=== PATIENT | male | born 1945 | race Caucasian/White ===

== ENCOUNTER 2017-01-02 20:07 | Emergency (ER) | payer MEDICARE, OTHER ==
[2017-01-02 20:13] VITALS: BP 141/69
[2017-01-02 20:45] LABS: CHLORIDE,CL 103 mmol/L (101-111); SODIUM,NA 140 mmol/L (135-145)
--- NOTE | 2017-01-02 20:54 | EDM.PDOC ---
ED HPI GENERAL MEDICAL PROBLEM - General Chief Complaint: Chest Pain Stated Complaint: CHEST PRESSURE, [id number] Time Seen by Provider: 01/02/17 20:51 Source of Information: Reports: Patient History Limitations: Reports: No Limitations - History of Present Illness INITIAL COMMENTS - FREE TEXT/NARRATIVE: c/o chest pressure sensation on off for a while tonight seemed to be little more worse. saw PMD Friday for general check-up. presently seems to light up a bit. denies URI Sx. Mid-Sternal Chest Pain Score (Numeric/FACES): 4 - Related Data Allergies Allergy/AdvReac Type Severity Reaction Status Date / Time ramipril AdvReac Cough Verified 01/02/17 20:13 Home Meds: Home Meds Acetaminophen [Tylenol] 325 mg PO ASDIRECTED PRN 04/13/13 [History] Aspirin [Halfprin] 81 mg PO BEDTIME 04/13/13 [History] Atenolol [Tenormin] 75 mg PO DAILY 04/13/13 [History] Omeprazole 20 mg PO DAILY 04/13/13 [History] amLODIPine Besylate [Amlodipine Besylate] 10 mg PO DAILY 04/13/13 [History] atorvaSTATin Calcium [Atorvastatin Calcium] 20 mg PO BEDTIME 04/13/13 [History] Cholecalciferol (Vitamin D3) [Vitamin D3] 2,000 intnl unit PO DAILY 04/23/15 [ History] Lutein/Minerals/Vit A,C & E [I-[place]] 1 cap PO DAILY 04/23/15 [History] Valsartan 80 mg PO DAILY 04/23/15 [History] Cyanocobalamin (Vitamin B-12) [Cyanocobalamin Injection] 1,000 mcg IM ASDIRECTED 03/06/16 [History] Furosemide [Lasix] 20 mg PO DAILY 03/06/16 [History] Past Medical History HEENT History: Reports: Impaired Vision Other HEENT History: wears glasses Cardiovascular History: Reports: Bypass, CAD, High Cholesterol, Hypertension, Stents Respiratory History: Reports: Bronchitis, Recurrent Gastrointestinal History: Reports: Diverticulosis, GERD Other Gastrointestinal History: possible diverticulitis Genitourinary History: Reports: Prostate Disorder Musculoskeletal History: Reports: Arthritis Neurological History: Reports: None Psychiatric History: Reports: None Endocrine/Metabolic History: Reports: None Hematologic History: Reports: B12 Deficiency Immunologic History: Reports: None Oncologic (Cancer) History: Reports: Prostate, Other (See Below) Other Oncologic History: skin Dermatologic History: Reports: None - Past Surgical History Cardiovascular Surgical History: Reports: Coronary Artery Bypass, Coronary Artery Stent GI Surgical History: Reports: Colonoscopy, EGD Musculoskeletal Surgical History: Reports: None Social & Family History - Family History Cardiac: Reports: Hypertension Oncologic: Reports: Brain - Tobacco Use Smoking Status *Q: Never Smoker Second Hand Smoke Exposure: No - Alcohol Use Days Per Week of Alcohol Use: 1 Number of Drinks Per Day: 1 Total Drinks Per Week: 1 - Recreational Drug Use Recreational Drug Use: No - Living Situation & Occupation Living situation: Reports: , with Spouse Occupation: Retired ED ROS GENERAL - Review of Systems Review Of Systems: ROS reveals no pertinent complaints other than HPI. ED EXAM, GENERAL - Physical Exam Exam: See Below Exam Limited By: No Limitations General Appearance: Alert, WD/WN, No Apparent Distress Ears: Hearing Grossly Normal Nose: Normal Inspection Throat/Mouth: Normal Voice, No Airway Compromise Head: Atraumatic Neck: Non-Tender, Full Range of Motion Respiratory/Chest: No Respiratory Distress, No Accessory Muscle Use, Chest Non- Tender, Rhonchi, Other (basilar) Cardiovascular: Regular Rate, Rhythm GI/Abdominal: Soft, Non-Tender Neurological: Alert, Oriented, Normal Cognition, Normal Gait, No Motor/Sensory Deficits Psychiatric: Normal Affect, Normal Mood Skin Exam: Warm, Dry, Normal Color Lymphatic: No Adenopathy Course - Vital Signs Last Recorded V/S: Last Vital Signs Temp 36.2 C 01/02/17 20:09 Pulse 52 L 01/02/17 20:09 Resp 18 01/02/17 20:09 BP 141/69 H 01/02/17 20:09 Pulse Ox 94 L 01/02/17 20:09 - Orders/Labs/Meds Orders: Active Orders 24 hr Category Date Time Status EKG 12 Lead [EKG Documentation Completion] [RC] STAT Care 01/02/17 20:15 Active Labs: Laboratory Tests 01/02/17 01/02/17 01/02/17 Range/Units 20:20 20:20 20:20 WBC 7.1 (5.0-10.0) 10^3/uL RBC 4.10 L (4.6-6.2) 10^6/uL Hgb 12.5 L (14.0-18.0) g/dL Hct 36.5 L (40.0-54.0) % MCV 89.0 (80-100) fL MCH 30.5 (27.0-34.0) pg MCHC 34.2 (33.0-35.0) g/dL Plt Count 151 (150-450) 10^3/uL Neut % (Auto) 61.6 (42.2-75.2) % Lymph % (Auto) 25.3 (20.5-50.1) % [place] % (Auto) 10.5 H (2-8) % Eos % (Auto) 1.8 (1.0-3.0) % Baso % (Auto) 0.8 (0.0-1.0) % D-Dimer, Quantitative < 100 (0-400) ng/mL Sodium 140 (135-145) mmol/L Potassium 3.6 (3.6-5.0) mmol/L Chloride 103 (101-111) mmol/L Carbon Dioxide 27.0 (21.0-31.0) mmol/L Anion Gap 13.6 BUN 18 (7-18) mg/dL Creatinine 0.9 (0.6-1.3) mg/dL Est Cr Clr Drug Dosing 75.48 mL/min Estimated GFR (MDRD) > 60 BUN/Creatinine Ratio 20.00 Glucose 120 H (74-105) mg/dL Calcium 8.6 (8.4-10.2) mg/dl Total Bilirubin 0.8 (0.2-1.0) mg/dL AST 34 (10-42) IU/L ALT 25 (10-60) IU/L Alkaline Phosphatase 76 (42-121) IU/L Troponin I < 0.02 (0.00-0.02) ng/ml B-Natriuretic Peptide 100 (0-100) pg/ml Total Protein 6.8 (6.7-8.2) g/dl Albumin 4.0 (3.2-5.5) g/dl Globulin 2.8 Albumin/Globulin Ratio 1.43 Meds: Medications Discontinued Medications Generic Name Dose Route Start Last Admin Trade Name Freq PRN Reason Stop Dose Admin Ketorolac Tromethamine 15 mg 01/02/17 21:54 01/02/17 22:00 Toradol IVPUSH 01/02/17 21:55 15 mg ONETIME ONE Administration - Re-Assessments/Exams Free Text/Narrative Re-Assessment/Exam: 01/02/17 21:54 results discussed with pt who is feeling better but not 1005. discomfort still come-goes. Departure - Departure Time of Disposition: 22:10 Disposition: Home, Self-Care 01 Condition: Good Clinical Impression: Atypical chest pain Instructions: Nonspecific Chest Pain, [id number] Referrals: Braulio Arias MD [Primary Care Provider] - Forms: ED Department Discharge Additional Instructions: 1) rest and avoid bending lifting straining 2) see family doctor tomorrow or recheck if there is any change or concern - My Orders Last 24 Hours: My Active Orders 01/02/17 20:15 EKG 12 Lead [EKG Documentation Completion] [RC] STAT - Assessment/Plan Last 24 Hours: My Active Orders 01/02/17 20:15 EKG 12 Lead [EKG Documentation Completion] [RC] STAT
[2017-01-02] MEDS ORDERED: Ketorolac 30 MG/ML SDV IVPUSH ONE (21:54)
--- NOTE | 2017-01-03 15:59 | EKG ---
01/02/2017 - ROSA ISELA VO I reviewed the EKG and agreed with the machine's reading. [facility] /[id number]
== END 2017-01-02 22:15 | disposition home or self-care (01) ==
LOC: DL.ED 20:07
DX: R07.89 Other chest pain (principal); I10 Essential (primary) hypertension; K21.9 Gastro-esophageal reflux disease without esophagitis; I25.10 Atherosclerotic heart disease of native coronary artery without angina pectoris; M19.90 Unspecified osteoarthritis, unspecified site; E78.00 Pure hypercholesterolemia, unspecified; Z79.899 Other long term (current) drug therapy
CPT/HCPCS: 36415; 71010; 80053; 83880; 84484; 85025; 85379; 93005; 96374; 99285; J1885; 93010; 99284

== ENCOUNTER 2017-01-21 20:14 | Emergency (ER) | payer MEDICARE, OTHER ==
[2017-01-21 20:24] VITALS: BP 150/75
--- NOTE | 2017-01-21 21:07 | EDM.PDOC ---
ED HPI GENERAL MEDICAL PROBLEM - General Chief Complaint: Abdominal Pain Stated Complaint: ABD PAIN, NO APPETITE Time Seen by Provider: 01/21/17 20:55 Source of Information: Reports: Patient History Limitations: Reports: No Limitations - History of Present Illness INITIAL COMMENTS - FREE TEXT/NARRATIVE: This 72 yo male patient reports to the ED with increased abdominal pain/ tenderness. The patient reports his symptoms started this morning and have been getting worse throughout the day. The patient reports he ate breakfast this morning and a little lunch at noon, but has not been feeling hungry throughout the afternoon. The patient reports he has a history of a bowel obstruction, cardiac bipass and GERD. The patient reports his current symptoms feel more like a bowel obstruction. The patient describes his pain as diffuse with cramping. Onset: Today Duration: Constant, Getting Worse Location: Reports: Abdomen (diffuse) Quality: Reports: Ache, Dull Severity: Moderate Improves with: Reports: None Worsens with: Reports: None Associated Symptoms: Reports: No Other Symptoms Abdomen Pain Score (Numeric/FACES): 3 - Related Data Allergies Allergy/AdvReac Type Severity Reaction Status Date / Time ramipril AdvReac Cough Verified 01/21/17 20:24 Home Meds: Home Meds Acetaminophen [Tylenol] 325 mg PO ASDIRECTED PRN 04/13/13 [History] Aspirin [Halfprin] 81 mg PO BEDTIME 04/13/13 [History] Atenolol [Tenormin] 75 mg PO DAILY 04/13/13 [History] Omeprazole 20 mg PO DAILY 04/13/13 [History] amLODIPine Besylate [Amlodipine Besylate] 10 mg PO DAILY 04/13/13 [History] atorvaSTATin Calcium [Atorvastatin Calcium] 20 mg PO BEDTIME 04/13/13 [History] Cholecalciferol (Vitamin D3) [Vitamin D3] 2,000 intnl unit PO DAILY 04/23/15 [ History] Lutein/Minerals/Vit A,C & E [I-[place]] 1 cap PO DAILY 04/23/15 [History] Valsartan 80 mg PO DAILY 04/23/15 [History] Cyanocobalamin (Vitamin B-12) [Cyanocobalamin Injection] 1,000 mcg IM ASDIRECTED 03/06/16 [History] Furosemide [Lasix] 20 mg PO DAILY 03/06/16 [History] Past Medical History HEENT History: Reports: Impaired Vision Other HEENT History: wears glasses Cardiovascular History: Reports: Bypass, CAD, High Cholesterol, Hypertension, Stents Respiratory History: Reports: Bronchitis, Recurrent Gastrointestinal History: Reports: Diverticulosis, GERD Other Gastrointestinal History: possible diverticulitis Genitourinary History: Reports: Prostate Disorder Musculoskeletal History: Reports: Arthritis Neurological History: Reports: None Psychiatric History: Reports: None Endocrine/Metabolic History: Reports: None Hematologic History: Reports: B12 Deficiency Immunologic History: Reports: None Oncologic (Cancer) History: Reports: Prostate, Other (See Below) Other Oncologic History: skin Dermatologic History: Reports: None - Past Surgical History Cardiovascular Surgical History: Reports: Coronary Artery Bypass, Coronary Artery Stent GI Surgical History: Reports: Colonoscopy, EGD Social & Family History - Family History Cardiac: Reports: Hypertension Oncologic: Reports: Brain - Tobacco Use Smoking Status *Q: Never Smoker Second Hand Smoke Exposure: No - Alcohol Use Days Per Week of Alcohol Use: 1 Number of Drinks Per Day: 1 Total Drinks Per Week: 1 - Recreational Drug Use Recreational Drug Use: No - Living Situation & Occupation Living situation: Reports: , with Spouse Occupation: Retired ED ROS GENERAL - Review of Systems Review Of Systems: ROS reveals no pertinent complaints other than HPI. ED EXAM, GI/ABD - Physical Exam Exam: See Below Exam Limited By: No Limitations General Appearance: Alert, WD/WN, Moderate Distress Eyes: Bilateral: Normal Appearance, EOMI Ears: Normal External Exam, Normal Canal, Hearing Grossly Normal, Normal TMs Nose: Normal Inspection, Normal Mucosa, No Blood Throat/Mouth: Normal Inspection, Normal Lips, Normal Teeth, Normal Gums, Normal Oropharynx, Normal Voice, No Airway Compromise Head: Atraumatic, Normocephalic Neck: Normal Inspection, Supple, Non-Tender, Full Range of Motion Respiratory/Chest: No Respiratory Distress, Lungs Clear, Normal Breath Sounds, No Accessory Muscle Use, Chest Non-Tender Cardiovascular: Normal Peripheral Pulses, Regular Rate, Rhythm, No Edema, No Gallop, No JVD, No Murmur, No Rub GI/Abdominal Exam: Normal Bowel Sounds, Distended, Tender (Male) Exam: Deferred Rectal (Males) Exam: Deferred Back Exam: Normal Inspection, Full Range of Motion, NT Extremities: Normal Inspection Neurological: Alert, Oriented, CN II-XII Intact, Normal Cognition, Normal Gait, Normal Reflexes, No Motor/Sensory Deficits Psychiatric: Normal Affect, Normal Mood Skin Exam: Warm, Dry, Intact, Normal Color, No Rash Lymphatic: No Adenopathy Course - Vital Signs Last Recorded V/S: Last Vital Signs Temp 36.1 C 01/21/17 20:20 Pulse 53 L 01/21/17 20:20 Resp 18 01/21/17 20:20 BP 150/75 H 01/21/17 20:20 Pulse Ox 95 01/21/17 20:20 - Orders/Labs/Meds Labs: Laboratory Tests 01/21/17 01/21/17 Range/Units 21:07 21:07 WBC 10.3 H (5.0-10.0) 10^3/uL RBC 4.69 (4.6-6.2) 10^6/uL Hgb 14.0 D (14.0-18.0) g/dL Hct 41.2 (40.0-54.0) % MCV 87.8 (80-100) fL MCH 29.9 (27.0-34.0) pg MCHC 34.0 (33.0-35.0) g/dL Plt Count 170 (150-450) 10^3/uL Neut % (Auto) 76.1 H (42.2-75.2) % Lymph % (Auto) 13.0 L (20.5-50.1) % [place] % (Auto) 9.4 H (2-8) % Eos % (Auto) 1.0 (1.0-3.0) % Baso % (Auto) 0.5 (0.0-1.0) % Sodium 137 (135-145) mmol/L Potassium 4.2 (3.6-5.0) mmol/L Chloride 101 (101-111) mmol/L Carbon Dioxide 26.0 (21.0-31.0) mmol/L Anion Gap 14.2 BUN 15 (7-18) mg/dL Creatinine 0.7 (0.6-1.3) mg/dL Est Cr Clr Drug Dosing 95.60 mL/min Estimated GFR (MDRD) > 60 BUN/Creatinine Ratio 21.42 Glucose 104 (74-105) mg/dL Calcium 9.3 (8.4-10.2) mg/dl Total Bilirubin 1.3 H (0.2-1.0) mg/dL AST 42 (10-42) IU/L ALT 30 (10-60) IU/L Alkaline Phosphatase 78 (42-121) IU/L Total Protein 7.3 (6.7-8.2) g/dl Albumin 4.4 (3.2-5.5) g/dl Globulin 2.9 Albumin/Globulin Ratio 1.52 Meds: Medications Discontinued Medications Generic Name Dose Route Start Last Admin Trade Name Ronalq PRN Reason Stop Dose Admin Iopamidol 100 ml 01/21/17 21:43 01/21/17 22:20 Isovue-300 (61%) IVPUSH 01/21/17 21:44 100 ml ONETIME ONE Administration Departure - Departure Time of Disposition: 23:34 Disposition: Home, Self-Care 01 Condition: Fair Clinical Impression: Constipation Qualifiers: Constipation type: unspecified constipation type Qualified Code(s): K59.00 - Constipation, unspecified - Discharge Information Instructions: Constipation, Adult, [id number] Forms: ED Department Discharge Care Plan Goals: The patient and his were advised of the examination, lab and CT results during the visit. The patient was encouraged to take MiraLax daily for the next 2-3 days to keep his bowels moving normally. If the patient has any additional symptoms or concerns, the patient should follow-up with his primary care facility or return to the emergency department.
[2017-01-21 21:32] LABS: CHLORIDE,CL 101 mmol/L (101-111); SODIUM,NA 137 mmol/L (135-145)
[2017-01-21] MEDS ORDERED: Iopamidol 612 MG/ML 100 ML Bottle IVPUSH ONE (21:43)
== END 2017-01-21 23:45 | disposition home or self-care (01) ==
LOC: DL.ED 20:14
DX: K59.00 Constipation, unspecified (principal); I25.10 Atherosclerotic heart disease of native coronary artery without angina pectoris; E78.00 Pure hypercholesterolemia, unspecified; I10 Essential (primary) hypertension; K21.9 Gastro-esophageal reflux disease without esophagitis; Z88.8 Allergy status to other drugs, medicaments and biological substances; Z79.899 Other long term (current) drug therapy; Z95.1 Presence of aortocoronary bypass graft; Z95.5 Presence of coronary angioplasty implant and graft; Z79.82 Long term (current) use of aspirin
CPT/HCPCS: 36415; 74177; 80053; 85025; 99284; Q9967

== ENCOUNTER → 2017-07-08 | Emergency (ER) | payer MEDICARE, OTHER ==
[~2017-07-08] MED LIST: Meclizine 12.5 MG Tab ONE; Meclizine 12.5 MG Tab PO ONE
[2017-07-08 11:38] LABS: CHLORIDE,CL 105 mmol/L (101-111); SODIUM,NA 137 mmol/L (135-145)
--- NOTE | 2017-07-08 19:53 | EKG ---
07/08/2017 - ROSA ISELA VO - TIME: 4:28 a.m. EKG shows sinus bradycardia rate of 59 per minute. There are EKG changes consistent with left ventricular hypertrophy. [facility] /[id number]
== END ==
LOC: DL.ED 04:16
DX: H83.09 Labyrinthitis, unspecified ear (principal)
CPT/HCPCS: 36415; 80053; 84484; 85025; 99283; 99284; A9270-GY

== ENCOUNTER 2017-10-19 21:07 | Emergency (ER) | payer MEDICARE, OTHER ==
[2017-10-19 21:18] VITALS: BP 168/72
--- NOTE | 2017-10-19 22:17 | EDM.PDOC ---
ED HPI GENERAL MEDICAL PROBLEM - General Chief Complaint: Upper Extremity Injury/Pain Stated Complaint: SHOULDER OUT OF PLACE [id number] Time Seen by Provider: 10/19/17 22:26 Source of Information: Reports: Patient, RN, RN Notes Reviewed History Limitations: Reports: No Limitations - History of Present Illness INITIAL COMMENTS - FREE TEXT/NARRATIVE: Pt to Er with c/o stiff right shoulder. States he was watching tv and suddenly had decreased range of motion of the shoulder. Pt denies pain at this time. He states he has a colonoscopy in the morning and wants to make sure he is ok to still have that done. Patient denies new trauma or injury to the area. Onset: Today, Sudden Right Shoulder Pain Score (Numeric/FACES): 5 - Related Data Allergies Allergy/AdvReac Type Severity Reaction Status Date / Time ramipril AdvReac Cough Verified 10/19/17 21:19 Home Meds: Home Meds Acetaminophen [Tylenol] 325 mg PO ASDIRECTED PRN 04/13/13 [History] Aspirin [Halfprin] 81 mg PO BEDTIME 04/13/13 [History] Atenolol [Tenormin] 75 mg PO DAILY 04/13/13 [History] Omeprazole 20 mg PO DAILY 04/13/13 [History] amLODIPine Besylate [Amlodipine Besylate] 10 mg PO DAILY 04/13/13 [History] atorvaSTATin Calcium [Atorvastatin Calcium] 20 mg PO BEDTIME 04/13/13 [History] Cholecalciferol (Vitamin D3) [Vitamin D3] 2,000 intnl unit PO DAILY 04/23/15 [ History] Lutein/Minerals/Vit A,C & E [I-[place]rence] 1 cap PO DAILY 04/23/15 [History] Valsartan 80 mg PO DAILY 04/23/15 [History] Cyanocobalamin (Vitamin B-12) [Cyanocobalamin Injection] 1,000 mcg IM ASDIRECTED 03/06/16 [History] Past Medical History HEENT History: Reports: Impaired Vision Other HEENT History: wears glasses Cardiovascular History: Reports: Bypass, CAD, High Cholesterol, Hypertension, Stents Respiratory History: Reports: Bronchitis, Recurrent Gastrointestinal History: Reports: Diverticulosis, GERD, Other (See Below) Other Gastrointestinal History: possible diverticulitis. bowel obstruction Genitourinary History: Reports: Prostate Disorder Musculoskeletal History: Reports: Arthritis Neurological History: Reports: None Psychiatric History: Reports: None Endocrine/Metabolic History: Reports: None Hematologic History: Reports: B12 Deficiency Immunologic History: Reports: None Oncologic (Cancer) History: Reports: Prostate, Other (See Below) Other Oncologic History: skin Dermatologic History: Reports: None - Infectious Disease History Infectious Disease History: Reports: Measles - Past Surgical History HEENT Surgical History: Reports: Tonsillectomy Other HEENT Surgeries/Procedures: rhinoplasty Cardiovascular Surgical History: Reports: Coronary Artery Bypass, Coronary Artery Stent Other Cardiovascular Surgeries/Procedures: triple bypass Respiratory Surgical History: Reports: None GI Surgical History: Reports: Colonoscopy, EGD Male Surgical History: Reports: Circumcision, Prostatectomy Endocrine Surgical History: Reports: None Musculoskeletal Surgical History: Reports: None Social & Family History - Family History Cardiac: Reports: Hypertension Oncologic: Reports: Brain - Tobacco Use Smoking Status *Q: Never Smoker Second Hand Smoke Exposure: No - Caffeine Use Caffeine Use: Reports: Coffee Other Caffeine Use: 2 cups daily - Recreational Drug Use Recreational Drug Use: No - Living Situation & Occupation Living situation: Reports: , with Spouse Occupation: Retired Review of Systems - Review of Systems Review Of Systems: ROS reveals no pertinent complaints other than HPI. ED EXAM, GENERAL - Physical Exam Exam: See Below Exam Limited By: No Limitations General Appearance: Alert, WD/WN, No Apparent Distress Eye Exam: Bilateral Eye: EOMI, Normal Inspection Ears: Normal External Exam, Hearing Grossly Normal Nose: Normal Inspection Throat/Mouth: Normal Inspection, Normal Voice, No Airway Compromise Head: Atraumatic, Normocephalic Neck: Normal Inspection, Supple, Non-Tender, Full Range of Motion Respiratory/Chest: No Respiratory Distress, Lungs Clear, Normal Breath Sounds, No Accessory Muscle Use, Chest Non-Tender Cardiovascular: Normal Peripheral Pulses, Regular Rate, Rhythm, No Edema, No Gallop, No JVD, No Murmur, No Rub Peripheral Pulses: 2+: Radial (L), Radial (R) GI/Abdominal: Normal Bowel Sounds, Soft, Non-Tender (Male) Exam: Deferred Rectal (Males) Exam: Deferred Back Exam: Normal Inspection, Full Range of Motion Extremities: Normal Inspection, Joint Swelling (patient feels the right shoulder is swollen, or larger than the other. It does not appear to be swollen or larger than the left shoulder on exam.), Limited Range of Motion (right arm) Neurological: Alert, Oriented, CN II-XII Intact, Normal Cognition, Normal Gait, Normal Reflexes, No Motor/Sensory Deficits Psychiatric: Normal Affect, Normal Mood Skin Exam: Warm, Dry, Intact, Normal Color, No Rash Lymphatic: No Adenopathy ED TRAUMA EXTREMITY PROCEDURES - Splinting Right Upper Extremity Splint Site: immobilization of right shoulder Pre-Procedure NV Status: Normal Post-Procedure NV Status: Normal Splint Material: Sling Splint Design: Sling Applied & Form Fitted By: Nurse Provider Post-Splint Application NV Check: NV Status Normal, Good Position Complications: No Course - Vital Signs Last Recorded V/S: Last Vital Signs Temp 97.2 F 10/19/17 21:15 Pulse 59 L 10/19/17 21:15 Resp 18 10/19/17 21:15 BP 168/72 H 10/19/17 21:15 Pulse Ox 95 10/19/17 21:15 - Radiology Interpretation Free Text/Narrative:: Right shoulder xray: IMPRESSION: Normal right shoulder x-rays. Thank you for allowing us to participate in the care of your patient. Dictated and Authenticated by: Edgar Mosqueda MD 10/19/2017 10:11 PM Central Time ([place] & [place]) See rad report Departure - Departure Time of Disposition: 22:35 Disposition: Home, Self-Care 01 Condition: Fair Clinical Impression: Decreased ROM of right shoulder - Discharge Information Referrals: Braulio Arias MD [Primary Care Provider] - Forms: ED Department Discharge Additional Instructions: May ice or heat the area as tolerated Use immobilizer until seen by Physical therapy Make an appointment with Physical therapy tomorrow for evaluation Follow up with your primary care facility
== END 2017-10-19 22:42 | disposition home or self-care (01) ==
LOC: DL.ED 21:07
DX: M25.611 Stiffness of right shoulder, not elsewhere classified (principal); I10 Essential (primary) hypertension; Z88.8 Allergy status to other drugs, medicaments and biological substances; Z79.899 Other long term (current) drug therapy
CPT/HCPCS: 73030-RT; 99283

== ENCOUNTER 2017-10-20 06:54 | Day surgery (SDC) | payer MEDICARE, OTHER ==
[~2017-10-20 06:54] MED LIST changes: +Dextrose 5%-0.45% NaCl 1,000 ML IV SCH; -Meclizine 12.5 MG Tab ONE; -Meclizine 12.5 MG Tab PO ONE; +Midazolam 1 MG/ML 2 ML SDV ONE; +Sodium Chloride 0.9% 10 ML Syringe FLUSH PRN; +fentaNYL 100 MCG/2 ML SDV ONE
[2017-10-20] MEDS ORDERED: fentaNYL 100 MCG/2 ML SDV IV ONE ×2 (08:18→08:19)
[2017-10-20] MEDS ORDERED: Midazolam 1 MG/ML 2 ML SDV IV ONE ×2 (08:19→08:20)
--- NOTE | 2017-10-20 08:59 | OR ---
DATE: 10/20/2017 PROCEDURE PERFORMED: Total colonoscopy, NBI with magnification views. PREMEDICATIONS: Fentanyl 100 mcg intravenous, Versed 3 mg intravenous. The procedure was done under pulse oximetry, BP recording, and insulation packer. INDICATION: The patient with rectal bleeding. Colonoscopic examination is done for detection of any polypoid lesions and removal, endoscopic hemostasis therapy if needed. DESCRIPTION OF PROCEDURE: Initial rectal exam was unremarkable. Rigid anoscopy showed some patchy erythema involving the distal rectum. The colonoscope was passed with ease. Photographs were taken, including NBI and magnification views of the rectum showing features consistent with radiation proctopathy, scattered diverticula were noted in the distal left colon along with deformity. The scope was passed with ease up to the ileocecal area, photographs were taken of the normal-appearing cecum identified by landmarks of appendiceal orifice and double- bulged ileocecal folds. There was quite a bit of fecal material, mostly liquid in nature that had to be aspirated. The bowel preparation was found to be adequate. No bleeding was noted from any of the visualized areas at the commencement of the examination. No stricture. No vascular ectasia. No large isolated ulcerations seen. No polyp or tumor mass identified. Probing the proximal sides of folds and flexures, using adequate distention and clearing up the stool material, withdrawal of the scope was made, cecum to rectum time over 6 minutes. No bleeding was noted from any of the visualized areas at the completion of examination. IMPRESSION: 1. Radiation proctopathy. 2. Diverticulosis. The patient tolerated the procedure well. [facility] /[id number]
[2017-10-20 10:36] VITALS: BP 138/68
--- NOTE | 2017-10-20 12:38 | LETTER ---
10/20/[address] [facility] [address] [place] [address] RE: ROSA ISELA VO : [address] Pope: Mr. Rosa Isela Vo had colonoscopic examination done this morning and he tolerated the procedure well. I herewith send a copy of the endoscopy note and photographs for your review. Thank you. Sincerely, [facility] /[id number]
== END 2017-10-20 10:00 | disposition home or self-care (01) ==
LOC: DL.ENDO 06:54
PROVIDERS: ATTEND Internal Medicine Gastroenterology
DX: K62.5 Hemorrhage of anus and rectum (principal); K62.7 Radiation proctitis; K57.30 Diverticulosis of large intestine without perforation or abscess without bleeding; K21.9 Gastro-esophageal reflux disease without esophagitis; K58.2 Mixed irritable bowel syndrome; I25.10 Atherosclerotic heart disease of native coronary artery without angina pectoris; E11.9 Type 2 diabetes mellitus without complications; E66.09 Other obesity due to excess calories; E78.5 Hyperlipidemia, unspecified; F41.1 Generalized anxiety disorder; Z88.8 Allergy status to other drugs, medicaments and biological substances
CPT/HCPCS: G0121; J7042; J2250; J3010

== ENCOUNTER 2017-12-23 07:16 | Emergency (ER) | payer MEDICARE, OTHER ==
[2017-12-23 07:26] VITALS: BP 169/77
--- NOTE | 2017-12-23 07:35 | EDM.PDOC ---
ED HPI GENERAL MEDICAL PROBLEM - General Chief Complaint: General Stated Complaint: LIGHT HEADED HIGH BLOOD PRESSURE [id number] Time Seen by Provider: 12/23/17 07:25 Source of Information: Reports: Patient, Old Records, RN, RN Notes Reviewed History Limitations: Reports: No Limitations - History of Present Illness INITIAL COMMENTS - FREE TEXT/NARRATIVE: Pt presents to ER from home by POV with c/o that he woke feeling lightheaded. Pt states he took his BP and it was 190 on the top number so he came to the ER. He states that he is anxious and "over excited" about a trip he is taking today with the [employer] for a 'mystery event' and perhaps that is why he is feeling different. Pt has Hx of CAD and didn't want to take any chances, so he decided to come to the ER. He denies chest pain, motor weakness, shortness of breath, N/ V, abdominal pain, neck or back pain, headache, slurred speech, visual changes, difficulty swallowing, palpitations, orthopnea, syncope, edema, cough, fever or chills. He admits to recent upper resp. cold with scratchy throat, but states it has been going away. Onset: Today Duration: Improving Location: Reports: Generalized Quality: Reports: Other (denies pain) Severity: Moderate Improves with: Reports: None Worsens with: Reports: None Associated Symptoms: Reports: No Other Symptoms - Related Data Allergies Allergy/AdvReac Type Severity Reaction Status Date / Time ramipril AdvReac Cough Verified 12/23/17 07:22 Home Meds: Home Meds Acetaminophen [Tylenol] 325 mg PO ASDIRECTED PRN 04/13/13 [History] Aspirin [Halfprin] 81 mg PO BEDTIME 04/13/13 [History] Atenolol [Tenormin] 75 mg PO DAILY 04/13/13 [History] Omeprazole 20 mg PO DAILY 04/13/13 [History] amLODIPine Besylate [Amlodipine Besylate] 10 mg PO DAILY 04/13/13 [History] atorvaSTATin Calcium [Atorvastatin Calcium] 20 mg PO BEDTIME 04/13/13 [History] Cholecalciferol (Vitamin D3) [Vitamin D3] 2,000 intnl unit PO DAILY 04/23/15 [ History] Lutein/Minerals/Vit A,C & E [I-Lawrence] 1 cap PO DAILY 04/23/15 [History] Cyanocobalamin (Vitamin B-12) [Cyanocobalamin Injection] 1,000 mcg IM ASDIRECTED 03/06/16 [History] Losartan [Cozaar] 50 mg PO DAILY 12/23/17 [History] Past Medical History HEENT History: Reports: Impaired Vision Other HEENT History: wears glasses Cardiovascular History: Reports: Bypass, CAD, High Cholesterol, Hypertension, Stents Respiratory History: Reports: Bronchitis, Recurrent Gastrointestinal History: Reports: Diverticulosis, GERD, Other (See Below) Other Gastrointestinal History: possible diverticulitis. bowel obstruction Genitourinary History: Reports: Prostate Disorder Musculoskeletal History: Reports: Arthritis Neurological History: Reports: None Psychiatric History: Reports: None Endocrine/Metabolic History: Reports: None Hematologic History: Reports: B12 Deficiency Immunologic History: Reports: None Oncologic (Cancer) History: Reports: Prostate, Other (See Below) Other Oncologic History: skin Dermatologic History: Reports: None - Infectious Disease History Infectious Disease History: Reports: Measles - Past Surgical History HEENT Surgical History: Reports: Tonsillectomy Other HEENT Surgeries/Procedures: rhinoplasty Cardiovascular Surgical History: Reports: Coronary Artery Bypass, Coronary Artery Stent Other Cardiovascular Surgeries/Procedures: triple bypass Respiratory Surgical History: Reports: None GI Surgical History: Reports: Colonoscopy, EGD Male Surgical History: Reports: Circumcision, Prostatectomy Endocrine Surgical History: Reports: None Musculoskeletal Surgical History: Reports: None Social & Family History - Family History Family Medical History: Noncontributory Cardiac: Reports: Hypertension Oncologic: Reports: Brain - Tobacco Use Smoking Status *Q: Never Smoker - Caffeine Use Caffeine Use: Reports: Coffee Other Caffeine Use: 2 cups daily - Recreational Drug Use Recreational Drug Use: No - Living Situation & Occupation Living situation: Reports: , with Spouse Occupation: Retired ED ROS GENERAL - Review of Systems Review Of Systems: ROS reveals no pertinent complaints other than HPI. ED EXAM, GENERAL - Physical Exam Exam: See Below Exam Limited By: No Limitations General Appearance: Alert, WD/WN, No Apparent Distress, Anxious Eye Exam: Bilateral Eye: EOMI, Normal Inspection, PERRL Ears: Normal External Exam, Normal Canal, Hearing Grossly Normal, Normal TMs Nose: Normal Inspection, Normal Mucosa, No Blood Throat/Mouth: Normal Inspection, Normal Lips, Normal Teeth, Normal Gums, Normal Oropharynx, Normal Voice, No Airway Compromise Head: Atraumatic, Normocephalic Neck: Normal Inspection, Supple, Non-Tender, Full Range of Motion. No: Carotid Bruit, Lymphadenopathy (L), Lymphadenopathy (R) Respiratory/Chest: No Respiratory Distress, Lungs Clear, Normal Breath Sounds, No Accessory Muscle Use, Chest Non-Tender Cardiovascular: Normal Peripheral Pulses, Regular Rate, Rhythm, No Edema, No Gallop, No JVD, No Murmur, No Rub, Bradycardia GI/Abdominal: Normal Bowel Sounds, Soft, Non-Tender, No Distention, No Abnormal Bruit (Male) Exam: Deferred Rectal (Males) Exam: Deferred Back Exam: Normal Inspection, Full Range of Motion, NT Extremities: Normal Inspection, Normal Range of Motion, Non-Tender, Normal Capillary Refill, No Pedal Edema Neurological: Alert, Oriented, CN II-XII Intact, Normal Cognition, Normal Gait, No Motor/Sensory Deficits Psychiatric: Normal Affect, Anxious Skin Exam: Warm, Dry, Intact EKG INTERPRETATION EKG Date: 12/23/17 Time: 07:29 Rhythm: Other (Sinus pete) Rate (Beats/Min): 55 Union: LAD-Left Union Deviation P-Wave: Present QRS: Other (LVH) ST-T: Normal QT: Normal Comparison: No Change (compared to 07/08/17 EKG as interpreted by me.) Course - Vital Signs Last Recorded V/S: Last Vital Signs Temp 36.1 C 12/23/17 07:25 Pulse 57 L 12/23/17 07:25 Resp 15 12/23/17 07:25 BP 169/77 H 12/23/17 07:25 Pulse Ox 95 12/23/17 07:25 Orthostatic Blood Pressure [ 164/81 Standing] Orthostatic Blood Pressure [ 150/68 Sitting] Orthostatic Blood Pressure [ 161/81 Supine] No orthostatic symptoms. - Orders/Labs/Meds Orders: Active Orders 24 hr Category Date Time Status EKG 12 Lead [EKG Documentation Completion] [RC] STAT Care 12/23/17 07:35 Active Orthostatic Vital Signs [RC] ASDIRECTED Care 12/23/17 07:47 Active Labs: Laboratory Tests 12/23/17 12/23/17 12/23/17 Range/Units 07:39 07:45 07:45 WBC 6.8 (5.0-10.0) 10^3/uL RBC 4.51 L (4.6-6.2) 10^6/uL Hgb 13.8 L (14.0-18.0) g/dL Hct 40.3 (40.0-54.0) % MCV 89.4 (80-100) fL MCH 30.6 (27.0-34.0) pg MCHC 34.2 (33.0-35.0) g/dL Plt Count 162 (150-450) 10^3/uL Neut % (Auto) 66.7 (42.2-75.2) % Lymph % (Auto) 19.9 L (20.5-50.1) % Collier % (Auto) 9.5 H (2-8) % Eos % (Auto) 3.2 H (1.0-3.0) % Baso % (Auto) 0.7 (0.0-1.0) % Sodium 138 (135-145) mmol/L Potassium 3.8 (3.6-5.0) mmol/L Chloride 102 (101-111) mmol/L Carbon Dioxide 25.0 (21.0-31.0) mmol/L Anion Gap 14.8 BUN 15 (7-18) mg/dL Creatinine 0.7 (0.6-1.3) mg/dL Est Cr Clr Drug Dosing 92.58 mL/min Estimated GFR (MDRD) > 60 BUN/Creatinine Ratio 21.42 Glucose 107 H (74-105) mg/dL Calcium 8.9 (8.4-10.2) mg/dl Total Bilirubin 0.8 (0.2-1.0) mg/dL AST 26 (10-42) IU/L ALT 23 (10-60) IU/L Alkaline Phosphatase 74 (42-121) IU/L Troponin I < 0.02 (0.00-0.02) ng/ml Total Protein 7.3 (6.7-8.2) g/dl Albumin 4.3 (3.2-5.5) g/dl Globulin 3.0 Albumin/Globulin Ratio 1.43 Urine Color Yellow (YELLOW) Urine Appearance Clear (CLEAR) Urine pH 6.0 (5.0-9.0) Ur Specific [place] 1.025 (1.005-1.030) Urine Protein Negative (NEGATIVE) Urine Glucose (UA) Negative (NEGATIVE) Urine Ketones Negative (NEGATIVE) Urine Occult Blood Trace-intact H (NEGATIVE) Urine Nitrite Negative (NEGATIVE) Urine Bilirubin Negative (NEGATIVE) Urine Urobilinogen 0.2 (0.2-1.0) mg/dL Ur Leukocyte Esterase Negative (NEGATIVE) Urine RBC 0-5 /HPF Urine WBC Not seen (0-5/HPF) /HPF Ur Epithelial Cells Rare /HPF Urine Bacteria Not seen (0-FEW/HPF) /HPF Urine Mucus Few H /LPF - Radiology Interpretation Free Text/Narrative:: AP CXR: chronic/stable cardiomegaly, no acute process, see Rad. report. Departure - Departure Time of Disposition: 08:21 Disposition: Home, Self-Care 01 Condition: Good Clinical Impression: Chronic hypertension, Lightheadedness - Discharge Information Instructions: Dizziness, Hypertension Forms: ED Department Discharge Additional Instructions: Take your current medications as prescribed. Activity as tolerated. Follow up in clinic this week for further evaluation if any symptoms persist. - My Orders Last 24 Hours: My Active Orders 12/23/17 07:35 EKG 12 Lead [EKG Documentation Completion] [RC] STAT 12/23/17 07:47 Orthostatic Vital Signs [RC] ASDIRECTED - Assessment/Plan Last 24 Hours: My Active Orders 12/23/17 07:35 EKG 12 Lead [EKG Documentation Completion] [RC] STAT 12/23/17 07:47 Orthostatic Vital Signs [RC] ASDIRECTED
[2017-12-23 08:11] LABS: ANION GAP 14.8; CHLORIDE,CL 102 mmol/L (101-111); SODIUM,NA 138 mmol/L (135-145)
--- NOTE | 2017-12-24 19:40 | EKG ---
12/23/2017 - ROSA ISELA VO - EKG shows sinus bradycardia with a heart rate of 55 beats per minute with some left ventricular hypertrophy. [facility] /[id number]
== END 2017-12-23 08:35 | disposition home or self-care (01) ==
LOC: DL.ED 07:16
DX: I10 Essential (primary) hypertension (principal); E78.00 Pure hypercholesterolemia, unspecified; Z79.899 Other long term (current) drug therapy; Z88.8 Allergy status to other drugs, medicaments and biological substances
CPT/HCPCS: 36415; 71045; 80053; 81001; 84484; 85025; 93005; 93010; 99284

== ENCOUNTER 2018-05-09 04:26 | Emergency (ER) | payer MEDICARE, OTHER ==
[2018-05-09 04:47] VITALS: BP 133/76
--- NOTE | 2018-05-09 05:00 | EDM.PDOC ---
ED HPI GENERAL MEDICAL PROBLEM - General Chief Complaint: ENT Problem Stated Complaint: THROAT Time Seen by Provider: 05/09/18 04:55 Source of Information: Reports: Patient History Limitations: Reports: No Limitations - History of Present Illness INITIAL COMMENTS - FREE TEXT/NARRATIVE: gives 2 weeks h/o sore throat that always feels dried. Throat Pain Score (Numeric/FACES): 4 - Related Data Allergies Allergy/AdvReac Type Severity Reaction Status Date / Time ramipril AdvReac Cough Verified 05/09/18 04:32 Home Meds: Home Meds Acetaminophen [Tylenol] 325 mg PO ASDIRECTED PRN 04/13/13 [History] Aspirin [Halfprin] 81 mg PO BEDTIME 04/13/13 [History] Atenolol [Tenormin] 75 mg PO DAILY 04/13/13 [History] Omeprazole 20 mg PO DAILY 04/13/13 [History] amLODIPine Besylate [Amlodipine Besylate] 10 mg PO DAILY 04/13/13 [History] atorvaSTATin Calcium [Atorvastatin Calcium] 20 mg PO BEDTIME 04/13/13 [History] Cholecalciferol (Vitamin D3) [Vitamin D3] 2,000 intnl unit PO DAILY 04/23/15 [ History] Lutein/Minerals/Vit A,C & E [I-[place]rence] 1 cap PO DAILY 04/23/15 [History] Cyanocobalamin (Vitamin B-12) [Cyanocobalamin Injection] 1,000 mcg IM ASDIRECTED 03/06/16 [History] Losartan [Cozaar] 50 mg PO DAILY 12/23/17 [History] Losartan [Cozaar] 50 mg PO DAILY 05/09/18 [History] Past Medical History HEENT History: Reports: Impaired Vision Other HEENT History: wears glasses Cardiovascular History: Reports: Bypass, CAD, High Cholesterol, Hypertension, Stents Respiratory History: Reports: Bronchitis, Recurrent Gastrointestinal History: Reports: Diverticulosis, GERD, Other (See Below) Other Gastrointestinal History: possible diverticulitis. bowel obstruction Genitourinary History: Reports: Prostate Disorder Musculoskeletal History: Reports: Arthritis Neurological History: Reports: None Psychiatric History: Reports: None Endocrine/Metabolic History: Reports: None Hematologic History: Reports: B12 Deficiency Immunologic History: Reports: None Oncologic (Cancer) History: Reports: Prostate, Other (See Below) Other Oncologic History: skin Dermatologic History: Reports: None - Infectious Disease History Infectious Disease History: Reports: Measles - Past Surgical History HEENT Surgical History: Reports: Tonsillectomy Other HEENT Surgeries/Procedures: rhinoplasty Cardiovascular Surgical History: Reports: Coronary Artery Bypass, Coronary Artery Stent Other Cardiovascular Surgeries/Procedures: triple bypass Respiratory Surgical History: Reports: None GI Surgical History: Reports: Colonoscopy, EGD Male Surgical History: Reports: Circumcision, Prostatectomy Endocrine Surgical History: Reports: None Musculoskeletal Surgical History: Reports: None Social & Family History - Family History Family Medical History: Noncontributory Cardiac: Reports: Hypertension Oncologic: Reports: Brain - Tobacco Use Smoking Status *Q: Unknown Ever Smoked - Caffeine Use Caffeine Use: Reports: Coffee Other Caffeine Use: 2 cups daily - Recreational Drug Use Recreational Drug Use: No - Living Situation & Occupation Living situation: Reports: , with Spouse Occupation: Retired ED ROS ENT - Review of Systems Review Of Systems: ROS reveals no pertinent complaints other than HPI. ED EXAM, ENT - Physical Exam Exam: See Below Exam Limited By: No Limitations General Appearance: Alert, WD/WN, No Apparent Distress Ears: Hearing Grossly Normal Mouth/Throat: Pharyngeal Erythema Head: Atraumatic Neck: Non-Tender, Full Range of Motion Respiratory/Chest: No Respiratory Distress Cardiovascular: Regular Rate, Rhythm GI/Abdominal: Soft, Non-Tender Neurological: Alert, Oriented, Normal Cognition, Normal Gait, No Motor/Sensory Deficits Psychiatric: Normal Affect, Normal Mood Skin: Warm, Dry, Normal Color Lymphatic: No Adenopathy Course - Vital Signs Last Recorded V/S: Last Vital Signs Temp 36.4 C 05/09/18 04:41 Pulse 62 05/09/18 04:41 Resp 20 05/09/18 04:41 BP 133/76 05/09/18 04:41 Pulse Ox 94 L 05/09/18 04:41 - Re-Assessments/Exams Free Text/Narrative Re-Assessment/Exam: 05/09/18 05:00 results discussed with pt. Departure - Departure Time of Disposition: 05:10 Disposition: Home, Self-Care 01 Condition: Good Clinical Impression: Tonsillopharyngitis - Discharge Information Instructions: Pharyngitis, [id number] Forms: ED Department Discharge Additional Instructions: 1) try humidifier in room 2) call Dr Arias office Friday for strep result
== END 2018-05-09 05:12 | disposition home or self-care (01) ==
LOC: DL.ED 04:26
DX: J03.90 Acute tonsillitis, unspecified (principal); E78.00 Pure hypercholesterolemia, unspecified; I10 Essential (primary) hypertension; Z95.5 Presence of coronary angioplasty implant and graft; Z88.8 Allergy status to other drugs, medicaments and biological substances; Z79.899 Other long term (current) drug therapy; Z79.82 Long term (current) use of aspirin; Z95.0 Presence of cardiac pacemaker
CPT/HCPCS: 87081; 87430; 99283

== ENCOUNTER 2018-05-10 01:01 | Emergency (ER) | payer MEDICARE, OTHER ==
[2018-05-10 01:32] VITALS: BP 164/74
[2018-05-10] MEDS ORDERED: Amoxicillin 250 MG Cap PO ONE (01:37)
--- NOTE | 2018-05-10 01:43 | EDM.PDOC ---
ED HPI GENERAL MEDICAL PROBLEM - General Chief Complaint: ENT Problem Stated Complaint: THROAT STILL BOTHERING Time Seen by Provider: 05/10/18 01:38 Source of Information: Reports: Patient History Limitations: Reports: No Limitations - History of Present Illness INITIAL COMMENTS - FREE TEXT/NARRATIVE: was here earlier and had declined ABX but not getting better - Related Data Allergies Allergy/AdvReac Type Severity Reaction Status Date / Time ramipril AdvReac Cough Verified 05/10/18 01:32 Home Meds: Home Meds Acetaminophen [Tylenol] 325 mg PO ASDIRECTED PRN 04/13/13 [History] Aspirin [Halfprin] 81 mg PO BEDTIME 04/13/13 [History] Atenolol [Tenormin] 75 mg PO DAILY 04/13/13 [History] Omeprazole 20 mg PO DAILY 04/13/13 [History] amLODIPine Besylate [Amlodipine Besylate] 10 mg PO DAILY 04/13/13 [History] atorvaSTATin Calcium [Atorvastatin Calcium] 20 mg PO BEDTIME 04/13/13 [History] Cholecalciferol (Vitamin D3) [Vitamin D3] 2,000 intnl unit PO DAILY 04/23/15 [ History] Lutein/Minerals/Vit A,C & E [I-[place]] 1 cap PO DAILY 04/23/15 [History] Cyanocobalamin (Vitamin B-12) [Cyanocobalamin Injection] 1,000 mcg IM ASDIRECTED 03/06/16 [History] Losartan [Cozaar] 50 mg PO DAILY 12/23/17 [History] Losartan [Cozaar] 50 mg PO DAILY 05/09/18 [History] Past Medical History HEENT History: Reports: Impaired Vision Other HEENT History: wears glasses Cardiovascular History: Reports: Bypass, CAD, High Cholesterol, Hypertension, Stents Respiratory History: Reports: Bronchitis, Recurrent Gastrointestinal History: Reports: Diverticulosis, GERD, Other (See Below) Other Gastrointestinal History: possible diverticulitis. bowel obstruction Genitourinary History: Reports: Prostate Disorder Musculoskeletal History: Reports: Arthritis Neurological History: Reports: None Psychiatric History: Reports: None Endocrine/Metabolic History: Reports: None Hematologic History: Reports: B12 Deficiency Immunologic History: Reports: None Oncologic (Cancer) History: Reports: Prostate, Other (See Below) Other Oncologic History: skin Dermatologic History: Reports: None - Infectious Disease History Infectious Disease History: Reports: Measles - Past Surgical History HEENT Surgical History: Reports: Tonsillectomy Other HEENT Surgeries/Procedures: rhinoplasty Cardiovascular Surgical History: Reports: Coronary Artery Bypass, Coronary Artery Stent Other Cardiovascular Surgeries/Procedures: triple bypass Respiratory Surgical History: Reports: None GI Surgical History: Reports: Colonoscopy, EGD Male Surgical History: Reports: Circumcision, Prostatectomy Endocrine Surgical History: Reports: None Musculoskeletal Surgical History: Reports: None Social & Family History - Family History Family Medical History: Noncontributory Cardiac: Reports: Hypertension Oncologic: Reports: Brain - Tobacco Use Smoking Status *Q: Never Smoker - Caffeine Use Caffeine Use: Reports: Soda Other Caffeine Use: 2 cups daily - Recreational Drug Use Recreational Drug Use: No - Living Situation & Occupation Living situation: Reports: , with Spouse Occupation: Retired ED ROS ENT - Review of Systems Review Of Systems: ROS reveals no pertinent complaints other than HPI. ED EXAM, ENT - Physical Exam Exam: See Below Exam Limited By: No Limitations General Appearance: Alert, WD/WN, Mild Distress, Other (discomfort) Ears: Hearing Grossly Normal Mouth/Throat: Pharyngeal Erythema, Tonsillar Erythema Head: Atraumatic Neck: Non-Tender, Full Range of Motion Respiratory/Chest: No Respiratory Distress, Lungs Clear, Normal Breath Sounds Cardiovascular: Regular Rate, Rhythm GI/Abdominal: Soft, Non-Tender Neurological: Alert, Oriented, Normal Cognition, Normal Gait, No Motor/Sensory Deficits Psychiatric: Normal Affect, Normal Mood Skin: Warm, Dry, Normal Color Lymphatic: No Adenopathy Course - Vital Signs Last Recorded V/S: Last Vital Signs Temp 36.6 C 05/10/18 01:17 Pulse 70 05/10/18 01:17 Resp 18 05/10/18 01:17 BP 164/74 H 05/10/18 01:17 Pulse Ox 97 05/10/18 01:17 - Orders/Labs/Meds Orders: Active Orders 24 hr Category Date Time Status Amoxicillin [Amoxil] Med 05/10/18 01:37 Once 250 mg PO ONETIME ONE Departure - Departure Time of Disposition: 01:42 Disposition: Home, Self-Care 01 Condition: Good Clinical Impression: Tonsillopharyngitis - Discharge Information Instructions: Sore Throat, [id number] Additional Instructions: 1) avoid solid foods next 48 hours 2) have broth, jello, 3) take tylenol or motrin for fever rx givne; amox 250g tid x 30 - My Orders Last 24 Hours: My Active Orders 05/10/18 01:37 Amoxicillin [Amoxil] 250 mg PO ONETIME ONE - Assessment/Plan Last 24 Hours: My Active Orders 05/10/18 01:37 Amoxicillin [Amoxil] 250 mg PO ONETIME ONE
== END 2018-05-10 02:00 | disposition home or self-care (01) ==
LOC: DL.ED 01:01
DX: J03.90 Acute tonsillitis, unspecified (principal); E78.00 Pure hypercholesterolemia, unspecified; I10 Essential (primary) hypertension; I25.10 Atherosclerotic heart disease of native coronary artery without angina pectoris; Z88.8 Allergy status to other drugs, medicaments and biological substances; Z95.5 Presence of coronary angioplasty implant and graft; Z79.82 Long term (current) use of aspirin; Z79.899 Other long term (current) drug therapy; Z95.1 Presence of aortocoronary bypass graft
CPT/HCPCS: 99283; A9270

== ENCOUNTER 2019-03-27 19:35 | Emergency (ER) | payer MEDICARE, OTHER ==
[2019-03-27 19:45] VITALS: BP 161/82; PULSE 57
[2019-03-27] MEDS ORDERED: Ondansetron 4 MG/2 ML SDV IV ONE (20:18)
--- NOTE | 2019-03-27 20:21 | EDM.PDOC ---
ED HPI GENERAL MEDICAL PROBLEM - General Chief Complaint: Abdominal Pain Stated Complaint: STOMACH ISSUES Time Seen by Provider: 03/27/19 20:18 Source of Information: Reports: Patient History Limitations: Reports: No Limitations - History of Present Illness INITIAL COMMENTS - FREE TEXT/NARRATIVE: onset abd pain this AM, ate popcorn last night but only had small breakfast of little oatmeal and banana and nothing more. did try to drink flat 7-up but not helping. feels bloated. Abdomen Pain Score (Numeric/FACES): 5 - Related Data Allergies Allergy/AdvReac Type Severity Reaction Status Date / Time ramipril AdvReac Cough Verified 03/27/19 19:40 Home Meds: Home Meds Acetaminophen [Tylenol] 325 mg PO ASDIRECTED PRN 04/13/13 [History] Aspirin [Halfprin] 81 mg PO BEDTIME 04/13/13 [History] Atenolol [Tenormin] 75 mg PO DAILY 04/13/13 [History] Omeprazole 20 mg PO DAILY 04/13/13 [History] amLODIPine Besylate [Amlodipine Besylate] 10 mg PO DAILY 04/13/13 [History] atorvaSTATin Calcium [Atorvastatin Calcium] 20 mg PO BEDTIME 04/13/13 [History] Cholecalciferol (Vitamin D3) [Vitamin D3] 2,000 intnl unit PO DAILY 04/23/15 [ History] Lutein/Minerals/Vit A,C & E [I-[place]rence] 1 cap PO BID 04/23/15 [History] Cyanocobalamin (Vitamin B-12) [Cyanocobalamin Injection] 1,000 mcg IM ASDIRECTED 03/06/16 [History] Losartan [Cozaar] 75 mg PO DAILY 12/23/17 [History] Past Medical History HEENT History: Reports: Cataract, Impaired Vision Other HEENT History: wears glasses Cardiovascular History: Reports: Bypass, CAD, High Cholesterol, Hypertension, Stents Respiratory History: Reports: Bronchitis, Recurrent Gastrointestinal History: Reports: Diverticulosis, GERD, Other (See Below) Other Gastrointestinal History: possible diverticulitis. bowel obstruction. Has some urinary retension. Self caths 2-3 times a week. Genitourinary History: Reports: Prostate Disorder Musculoskeletal History: Reports: Arthritis Neurological History: Reports: None Psychiatric History: Reports: None Endocrine/Metabolic History: Reports: None Hematologic History: Reports: B12 Deficiency Immunologic History: Reports: None Oncologic (Cancer) History: Reports: Prostate, Other (See Below) Other Oncologic History: skin Dermatologic History: Reports: None - Infectious Disease History Infectious Disease History: Reports: Measles - Past Surgical History HEENT Surgical History: Reports: Tonsillectomy Other HEENT Surgeries/Procedures: rhinoplasty Cardiovascular Surgical History: Reports: Coronary Artery Bypass, Coronary Artery Stent Other Cardiovascular Surgeries/Procedures: triple bypass Respiratory Surgical History: Reports: None GI Surgical History: Reports: Colonoscopy, EGD Male Surgical History: Reports: Circumcision, Prostatectomy Endocrine Surgical History: Reports: None Musculoskeletal Surgical History: Reports: None Social & Family History - Family History Family Medical History: Noncontributory Cardiac: Reports: Hypertension Oncologic: Reports: Brain - Tobacco Use Smoking Status *Q: Never Smoker Second Hand Smoke Exposure: No - Caffeine Use Caffeine Use: Reports: Coffee Other Caffeine Use: 2 cups daily - Recreational Drug Use Recreational Drug Use: No - Living Situation & Occupation Living situation: Reports: , with Spouse Occupation: Retired ED ROS GENERAL - Review of Systems Review Of Systems: Comprehensive ROS is negative, except as noted in HPI. ED EXAM, GI/ABD - Physical Exam Exam: See Below Exam Limited By: No Limitations General Appearance: Alert, WD/WN, Mild Distress, Other (discomfort). No: Active Emesis Ears: Hearing Grossly Normal Throat/Mouth: Normal Voice, No Airway Compromise Head: Atraumatic Neck: Non-Tender, Full Range of Motion Respiratory/Chest: No Respiratory Distress Cardiovascular: Regular Rate, Rhythm GI/Abdominal Exam: Tender, Other (BS hyper, abd appear bloated.). No: Guarding , Rigid, Rebound Neurological: Alert, Oriented, Normal Cognition, Normal Gait, No Motor/Sensory Deficits Psychiatric: Flat Affect Skin Exam: Warm, Dry, Normal Color Lymphatic: No Adenopathy Course - Vital Signs Last Recorded V/S: Last Vital Signs Temp 35.9 C 03/27/19 19:43 Pulse 57 L 03/27/19 19:43 Resp 18 03/27/19 19:43 BP 161/82 H 03/27/19 19:43 Pulse Ox 96 03/27/19 19:43 - Orders/Labs/Meds Orders: Active Orders 24 hr Category Date Time Status Abdomen Pelvis w Cont [CT] Urgent Exams 03/27/19 20:48 Taken Labs: Laboratory Tests 03/27/19 03/27/19 Range/Units 20:10 20:10 WBC 10.3 H (5.0-10.0) 10^3/uL RBC 4.87 (4.6-6.2) 10^6/uL Hgb 14.9 (14.0-18.0) g/dL Hct 42.4 (40.0-54.0) % MCV 87.1 (80-100) fL MCH 30.6 (27.0-34.0) pg MCHC 35.1 H (33.0-35.0) g/dL Plt Count 186 (150-450) 10^3/uL Neut % (Auto) 74.7 (42.2-75.2) % Lymph % (Auto) 14.5 L (20.5-50.1) % Alfalfa % (Auto) 7.8 (2-8) % Eos % (Auto) 2.4 (1.0-3.0) % Baso % (Auto) 0.6 (0.0-1.0) % Sodium 139 (135-145) mmol/L Potassium 3.7 (3.6-5.0) mmol/L Chloride 103 (101-111) mmol/L Carbon Dioxide 27.0 (21.0-31.0) mmol/L Anion Gap 12.7 BUN 18 (7-18) mg/dL Creatinine 0.8 (0.6-1.3) mg/dL Est Cr Clr Drug Dosing 78.56 mL/min Estimated GFR (MDRD) > 60 BUN/Creatinine Ratio 22.50 Glucose 111 H (74-105) mg/dL Calcium 9.2 (8.4-10.2) mg/dl Total Bilirubin 1.4 H (0.2-1.0) mg/dL AST 23 (10-42) IU/L ALT 22 (10-60) IU/L Alkaline Phosphatase 82 (42-121) IU/L Total Protein 7.7 (6.7-8.2) g/dl Albumin 4.6 (3.2-5.5) g/dl Globulin 3.1 Albumin/Globulin Ratio 1.48 Amylase 52 (28-100) U/L Lipase 29 (22-51) U/L Meds: Medications Discontinued Medications Generic Name Dose Route Start Last Admin Trade Name Freq PRN Reason Stop Dose Admin Iopamidol 100 ml 12/14/19 20:48 03/27/19 21:14 Isovue-300 (61%) IVPUSH 03/27/19 20:49 100 ml ONETIME ONE Administration Ondansetron HCl 4 mg 03/27/19 20:18 03/27/19 20:21 Zofran IV 03/27/19 20:19 4 mg ONETIME ONE Administration - Re-Assessments/Exams Free Text/Narrative Re-Assessment/Exam: 03/27/19 22:13 results discussed with pt who is feeling much better now Departure - Departure Time of Disposition: 22:13 Disposition: Home, Self-Care 01 Condition: Good Clinical Impression: Abdominal pain, Diverticulosis - Discharge Information Instructions: Diverticulosis Forms: ED Department Discharge Additional Instructions: 1) avoid seeds, peas, popcorn, nuts, beans, and similar foods 2) follow up at clinic Sepsis Event Note - Evaluation Sepsis Screening Result: No Definite Risk - Focused Exam Vital Signs: Vital Signs Temp Pulse Resp BP Pulse Ox 03/27/19 19:43 35.9 C 57 L 18 161/82 H 96 Date Exam was Performed: 03/27/19 Time Exam was Performed: 22:12 - My Orders Last 24 Hours: My Active Orders 03/27/19 20:48 Abdomen Pelvis w Cont [CT] Urgent - Assessment/Plan Last 24 Hours: My Active Orders 03/27/19 20:48 Abdomen Pelvis w Cont [CT] Urgent
[2019-03-27 20:36] LABS: ANION GAP 12.7; CHLORIDE,CL 103 mmol/L (101-111); SODIUM,NA 139 mmol/L (135-145)
[2019-03-27] MEDS ORDERED: Iopamidol 612 MG/ML 100 ML Bottle IVPUSH ONE (20:48)
== END 2019-03-27 22:25 | disposition home or self-care (01) ==
LOC: DL.ED 19:35
DX: K57.30 Diverticulosis of large intestine without perforation or abscess without bleeding (principal); I10 Essential (primary) hypertension; K21.9 Gastro-esophageal reflux disease without esophagitis; E78.00 Pure hypercholesterolemia, unspecified; I25.10 Atherosclerotic heart disease of native coronary artery without angina pectoris; Z79.82 Long term (current) use of aspirin; Z79.899 Other long term (current) drug therapy; Z95.1 Presence of aortocoronary bypass graft; Z88.8 Allergy status to other drugs, medicaments and biological substances; Z95.5 Presence of coronary angioplasty implant and graft
CPT/HCPCS: 36415; 74177; 80053; 82150; 83690; 85025; J2405; Q9967; 96374; 99284-25

== ENCOUNTER 2020-04-01 13:00 | Emergency (ER) | payer MEDICARE, OTHER ==
[2020-04-01 13:21] VITALS: BP 142/71; PULSE 56
--- NOTE | 2020-04-01 14:28 | EDM.PDOC ---
ED HPI GENERAL MEDICAL PROBLEM - General Chief Complaint: General Stated Complaint: NOT FEELING WELL Time Seen by Provider: 04/01/20 14:23 Source of Information: Reports: Patient History Limitations: Reports: No Limitations - History of Present Illness INITIAL COMMENTS - FREE TEXT/NARRATIVE: This 75 yo male patient reports to the ED today due to a feeling that his "system" was not working. The patient reports he has been having a cough, dry mouth/throat and generalized intermittent body aches over the past 2 weeks. The patient reports his was having similar symptoms, was seen in the clinic last week and is currently waiting for her COVID test results. The patient reports he has been taking Tylenol for temporary symptom relief. Onset: Unknown/Unsure Duration: Week(s):, Constant, Getting Worse Location: Reports: Generalized Quality: Reports: Other Severity: Moderate Improves with: Reports: None Worsens with: Reports: None Context: Reports: Other Associated Symptoms: Reports: Cough, Other (generalized body aches) Treatments [employer]: Reports: Acetaminophen - Related Data Allergies Allergy/AdvReac Type Severity Reaction Status Date / Time ramipril AdvReac Cough Verified 04/01/20 13:12 Home Meds: Home Meds Acetaminophen [Tylenol] 325 - 650 mg PO Q6HR PRN 04/13/13 [History] Aspirin [Halfprin] 81 mg PO BEDTIME 04/13/13 [History] Omeprazole 20 mg PO DAILY 04/13/13 [History] amLODIPine Besylate [Amlodipine Besylate] 10 mg PO DAILY 04/13/13 [History] atenoloL [Tenormin] 75 mg PO DAILY 04/13/13 [History] atorvaSTATin Calcium [Atorvastatin Calcium] 20 mg PO BEDTIME 04/13/13 [History] Cholecalciferol (Vitamin D3) [Vitamin D3] 2,000 intnl unit PO BEDTIME 04/23/15 [History] Lutein/Minerals/Vit A,C & E [I-[place]] 1 cap PO BEDTIME 04/23/15 [History] Cyanocobalamin (Vitamin B-12) [Cyanocobalamin Injection] 1,000 mcg IM ASDIRECTED 03/06/16 [History] Losartan [Cozaar] 75 mg PO DAILY 12/23/17 [History] Multivitamin-Min/Iron/FA/Vit K [Multi-Day Plus Minerals Tablet] 1 each PO DAILY 04/01/20 [History] Triamcinolone Acetonide [Triamcinolone Acetonide 0.025%] 15 gm TOP BID 04/01/20 [History] hydroCHLOROthiazide [Hydrochlorothiazide] 25 mg PO DAILY 04/01/20 [History] Past Medical History HEENT History: Reports: Cataract, Impaired Vision Other HEENT History: wears glasses Cardiovascular History: Reports: Bypass, CAD, High Cholesterol, Hypertension, Stents Respiratory History: Reports: Bronchitis, Recurrent Gastrointestinal History: Reports: Diverticulosis, GERD, Other (See Below) Other Gastrointestinal History: possible diverticulitis. bowel obstruction. Has some urinary retension. Self caths 2-3 times a week. Genitourinary History: Reports: Prostate Disorder Musculoskeletal History: Reports: Arthritis Neurological History: Reports: None Psychiatric History: Reports: None Endocrine/Metabolic History: Reports: Obesity/BMI 30+ Hematologic History: Reports: B12 Deficiency Immunologic History: Reports: None Oncologic (Cancer) History: Reports: Prostate, Other (See Below) Other Oncologic History: skin Dermatologic History: Reports: Other (See Below) Other Dermatologic History: Skin CA left ear - Infectious Disease History Infectious Disease History: Reports: Measles - Past Surgical History HEENT Surgical History: Reports: Tonsillectomy Other HEENT Surgeries/Procedures: rhinoplasty Cardiovascular Surgical History: Reports: Coronary Artery Bypass, Coronary Artery Stent Other Cardiovascular Surgeries/Procedures: triple bypass Respiratory Surgical History: Reports: None GI Surgical History: Reports: Colonoscopy, EGD Male Surgical History: Reports: Circumcision, Prostatectomy Endocrine Surgical History: Reports: None Musculoskeletal Surgical History: Reports: None Social & Family History - Family History Family Medical History: No Pertinent Family History Cardiac: Reports: Hypertension Oncologic: Reports: Brain - Tobacco Use Tobacco Use Status *Q: Never Tobacco User Second Hand Smoke Exposure: No - Caffeine Use Caffeine Use: Reports: None Other Caffeine Use: 2 cups daily - Recreational Drug Use Recreational Drug Use: No - Living Situation & Occupation Living situation: Reports: , with Spouse Occupation: Retired ED ROS GENERAL - Review of Systems Review Of Systems: Comprehensive ROS is negative, except as noted in HPI. ED EXAM, GENERAL - Physical Exam Exam: See Below Exam Limited By: No Limitations General Appearance: Mild Distress Eye Exam: Bilateral Eye: EOMI, Normal Inspection, PERRL Ears: Normal External Exam, Normal Canal, Hearing Grossly Normal, Normal TMs Nose: Normal Inspection, Normal Mucosa, No Blood Throat/Mouth: Normal Inspection, Normal Lips, Normal Teeth, Normal Gums, Normal Oropharynx, Normal Voice, No Airway Compromise Head: Atraumatic, Normocephalic Neck: Normal Inspection, Supple, Non-Tender, Full Range of Motion Respiratory/Chest: No Respiratory Distress, Lungs Clear, Normal Breath Sounds, No Accessory Muscle Use, Chest Non-Tender Cardiovascular: Normal Peripheral Pulses, Regular Rate, Rhythm, No Edema, No Gallop, No JVD, No Murmur, No Rub GI/Abdominal: Normal Bowel Sounds, Soft, Non-Tender, No Organomegaly, No Distention, No Abnormal Bruit, No Mass (Male) Exam: Deferred Rectal (Males) Exam: Deferred Back Exam: Normal Inspection, Full Range of Motion, NT Extremities: Normal Inspection, Normal Range of Motion, Non-Tender, Normal Capillary Refill, No Pedal Edema Neurological: Alert, Oriented, CN II-XII Intact, Normal Cognition, Normal Gait, Normal Reflexes, No Motor/Sensory Deficits Psychiatric: Normal Affect, Normal Mood Skin Exam: Warm, Dry, Intact, Normal Color, No Rash Lymphatic: No Adenopathy Course - Vital Signs Last Recorded V/S: Last Vital Signs Temp 36.1 C 04/01/20 13:16 Pulse 56 L 04/01/20 13:16 Resp 16 04/01/20 13:16 BP 142/71 H 04/01/20 13:16 Pulse Ox 98 04/01/20 13:16 - Orders/Labs/Meds Labs: Laboratory Tests 04/01/20 04/01/20 04/01/20 Range/Units 14:30 14:40 14:40 WBC 6.5 (5.0-10.0) 10^3/uL RBC 4.11 L (4.6-6.2) 10^6/uL Hgb 12.9 L D (14.0-18.0) g/dL Hct 36.1 L (40.0-54.0) % MCV 87.8 (80-100) fL MCH 31.4 (27.0-34.0) pg MCHC 35.7 H (33.0-35.0) g/dL Plt Count 152 (150-450) 10^3/uL Neut % (Auto) 70.4 (42.2-75.2) % Lymph % (Auto) 19.6 L (20.5-50.1) % [place] % (Auto) 8.0 (2-8) % Eos % (Auto) 1.5 (1.0-3.0) % Baso % (Auto) 0.5 (0.0-1.0) % Sodium 139 (136-145) mmol/L Potassium 3.3 L (3.5-5.1) mmol/L Chloride 101 (98-107) mmol/L Carbon Dioxide 27 (21-32) mmol/L Anion Gap 14.3 H (7-13) mEq/L BUN 25 H (7-18) mg/dL Creatinine 0.94 (0.70-1.30) mg/dL Est Cr Clr Drug Dosing 67.95 mL/min Estimated GFR (MDRD) > 60 BUN/Creatinine Ratio 26.6 (No establ ref range) Glucose 107 H (74-99) mg/dL Calcium 8.5 (8.5-10.1) mg/dL Total Bilirubin 0.5 (0.2-1.0) mg/dL AST 20 (15-37) U/L ALT 31 (16-63) U/L Alkaline Phosphatase 94 (46-116) U/L Total Protein 7.2 (6.4-8.2) g/dL Albumin 3.9 (3.4-5.0) g/dL Globulin 3.3 Albumin/Globulin Ratio 1.2 SARS-CoV-2 RNA (ROMAINE) Positive H (NEGATIVE) Departure - Departure Time of Disposition: 15:41 Disposition: Home, Self-Care 01 Condition: Fair Clinical Impression: COVID-19 - Discharge Information *PRESCRIPTION DRUG MONITORING PROGRAM REVIEWED*: Not Applicable *COPY OF PRESCRIPTION DRUG MONITORING REPORT IN PATIENT ANA: Not Applicable Instructions: COVID-19: How to Protect Yourself and Others - CDC, Prevent the Spread of COVID-19 if You Are Sick - CDC Forms: ED Department Discharge Care Plan Goals: The patient was advised of the examination and lab results during the visit. The patient was encouraged to remain quarantined for the next 14 days. If the patient has any additional symptoms or concerns, the patient should either report to his primary care facility (please notify them of the COVID results) or visit the emergency department. Sepsis Event Note (ED) - Evaluation Sepsis Screening Result: No Definite Risk - Focused Exam Vital Signs: Vital Signs Temp Pulse Resp BP Pulse Ox 04/01/20 13:16 36.1 C 56 L 16 142/71 H 98
[2020-04-01 15:29] LABS: ANION GAP 14.3 mEq/L (7-13); CHLORIDE,CL 101 mmol/L (98-107); SODIUM,NA 139 mmol/L (136-145)
== END 2020-04-01 15:48 | disposition home or self-care (01) ==
LOC: DL.ED 13:00
DX: U07.1 COVID-19 (principal); E78.00 Pure hypercholesterolemia, unspecified; I25.10 Atherosclerotic heart disease of native coronary artery without angina pectoris; I10 Essential (primary) hypertension; E66.9 Obesity, unspecified; K21.9 Gastro-esophageal reflux disease without esophagitis; Z90.49 Acquired absence of other specified parts of digestive tract; Z88.8 Allergy status to other drugs, medicaments and biological substances; Z95.5 Presence of coronary angioplasty implant and graft; Z79.82 Long term (current) use of aspirin; Z79.899 Other long term (current) drug therapy
CPT/HCPCS: 36415; 80053; 85025; 99283; U0002

== ENCOUNTER 2021-02-10 01:06 | Emergency (ER) | payer MEDICARE, OTHER ==
[2021-02-10 02:37] LABS: ANION GAP 15.2 mEq/L (7-13); CHLORIDE,CL 100 mmol/L (98-107); SODIUM,NA 138 mmol/L (136-145)
[2021-02-10 02:56] LABS: CORONAVIRUS COVID-19 NAA NEGATIVE (NEGATIVE)
[2021-02-10] MEDS ORDERED: Iopamidol 612 MG/ML 100 ML Bottle IVPUSH ONE (03:50)
[2021-02-10 04:21] VITALS: PULSE 58
--- NOTE | 2021-02-10 04:43 | CT ---
PROCEDURE INFORMATION: Exam: CT Abdomen And Pelvis With Contrast Exam date and time: 02/10/2021 4:03 AM Age: 76 years old Clinical indication: Nausea and other: Pain; Additional info: Nausea, dizzy distended TECHNIQUE: Imaging protocol: Computed tomography of the abdomen and pelvis with contrast. Radiation optimization: All CT scans at this facility use at least one of these dose optimization techniques: automated exposure control; mA and/or kV adjustment per patient size (includes targeted exams where dose is matched to clinical indication); or iterative reconstruction. Contrast material: [id number]; Contrast volume: 100 ml; Contrast route: INTRAVENOUS (IV); COMPARISON: CT Abdomen Pelvis w Cont 03/27/2019 9:09 PM FINDINGS: Lungs: There is minimal bibasilar atelectasis. Heart: Mild biatrial enlargement. Coronary artery calcified atherosclerosis. Liver: The liver is mildly enlarged measuring 22 cm in craniocaudal dimension. There is a diffuse decrease in hepatic parenchymal density, suggesting fatty infiltration. Subcentimeter low attenuation hepatic lesions are too small to accurately characterize. Gallbladder and bile ducts: Normal. No calcified stones. No ductal dilation. Pancreas: Normal. No ductal dilation. Spleen: No splenomegaly. There is a 2.8 cm cystic lesion in the posterosuperior spleen. Adrenal glands: Normal. No mass. Kidneys and ureters: Multiple bilateral renal simple cysts, for example in the right lower renal pole measuring 3.6 cm on image 2:103. Bilateral renal parapelvic cysts. Subcentimeter low attenuation renal lesions are too small to accurately characterize. No hydronephrosis or hydroureter. No obstructing stones. Normal bilateral renal parenchymal enhancement. Stomach and bowel: Colonic diverticulosis without evidence of acute diverticulitis. There are multiple nonspecific fluid distended but non-pathologically dilated loops of small bowel in the abdomen and pelvis. No mucosal thickening. There is mild mesenteric fat stranding and trace interloop ascites associated with a few loops of ileum in the pelvis. No pneumatosis. Appendix: No evidence of appendicitis. Intraperitoneal space: See "Stomach and bowel" finding. Trace ascites. No focal fluid collections. No free air. Vasculature: The vasculature demonstrates mild atherosclerotic calcification. No abdominal aortic aneurysm. No mesenteric or portal venous gas. Lymph nodes: Unremarkable. No enlarged lymph nodes. Urinary bladder: Unremarkable as visualized. Reproductive: The prostate gland is surgically absent. Bones/joints: Unremarkable. No acute fracture. Soft tissues: Moderate bilateral inguinal hernias containing fat and small amount of fluid on the right and fat on the left, partially imaged on this exam. IMPRESSION: 1. Multiple nonspecific fluid distended but non-pathologically dilated loops of small bowel in the abdomen and pelvis. Mild mesenteric fat stranding and trace interloop ascites associated with a few loops of ileum in the pelvis, suggesting mild infectious/inflammatory enteritis. No pneumatosis or mesenteric or portal venous gas to suggest acute bowel ischemia. No obstruction. 2. Colonic diverticulosis without evidence of acute diverticulitis. 3. Moderate bilateral inguinal hernias. 4. Trace ascites. 5. Mild hepatomegaly. 6. Non-acute findings are described above. COMMENTS: Consistent with the [employer]'s Incidental Findings Committee white paper (J Am May Radiol 2018): Any incidental renal lesion less than 1 cm or classified as too small to characterize, or any incidental cystic renal lesion characterized as simple-appearing, is likely benign. No follow-up imaging is recommended for these lesions per consensus recommendations based on imaging criteria.
--- NOTE | 2021-02-10 04:48 | CR ---
PROCEDURE INFORMATION: Exam: XR Chest Exam date and time: 02/10/2021 4:09 AM Age: 76 years old Clinical indication: Other: HTN; Additional info: Nausea, HTN TECHNIQUE: Imaging protocol: XR of the chest. Views: 1 view. COMPARISON: CR Chest 1V Frontal 12/23/2017 7:50 AM FINDINGS: Lungs: Unremarkable. No consolidation. Pleural spaces: Unremarkable. No pleural effusion. No pneumothorax. Heart/Mediastinum: The cardiac silhouette is prominent but is accentuated by portable AP technique. Bones/joints: Median sternotomy wires. IMPRESSION: No acute findings.
[2021-02-10 05:26] VITALS: BP 132/71
[2021-02-10] MEDS ORDERED: Amoxicillin/Clavulanate K 875-125 MG Tab PO ONE (05:34)
[2021-02-10] MEDS ORDERED: Ondansetron 4 MG Tab.DIS PO ONE (05:34)
--- NOTE | 2021-02-10 05:36 | EDM.PDOC ---
ED HPI GENERAL MEDICAL PROBLEM - General Chief Complaint: Gastrointestinal Problem Stated Complaint: 96.6*, STOMACH ACHE, NAUSEA, FEELS LIKE VOMITING Time Seen by Provider: 02/10/21 01:25 Source of Information: Reports: Patient History Limitations: Reports: No Limitations - History of Present Illness INITIAL COMMENTS - FREE TEXT/NARRATIVE: ED with slight nausea, Onset this am, worse and sweaty, denied chest pain. Has not had cough or fever. Some dizzyness this am on firt arising then nothing. Hx divertic in past, Abdomen feel larger than usual, Small BM x 2 today. No urinary sx Anterior Abdomen Pain Score (Numeric/FACES): 4 - Related Data Allergies Allergy/AdvReac Type Severity Reaction Status Date / Time ramipril AdvReac Cough Verified 04/01/20 13:12 Home Meds: Home Meds Acetaminophen [Tylenol] 325 - 650 mg PO Q6HR PRN 04/13/13 [History] Aspirin [Halfprin] 81 mg PO BEDTIME 04/13/13 [History] Omeprazole 20 mg PO DAILY 04/13/13 [History] amLODIPine Besylate [Amlodipine Besylate] 10 mg PO DAILY 04/13/13 [History] atenoloL [Tenormin] 75 mg PO DAILY 04/13/13 [History] atorvaSTATin Calcium [Atorvastatin Calcium] 20 mg PO BEDTIME 04/13/13 [History] Cholecalciferol (Vitamin D3) [Vitamin D3] 2,000 intnl unit PO BEDTIME 04/23/15 [History] Lutein/Minerals/Vit A,C & E [I-[place]] 1 cap PO BEDTIME 04/23/15 [History] Cyanocobalamin (Vitamin B-12) [Cyanocobalamin Injection] 1,000 mcg IM ASDIRECTED 03/06/16 [History] Losartan [Cozaar] 75 mg PO DAILY 12/23/17 [History] Multivitamin-Min/Iron/FA/Vit K [Multi-Day Plus Minerals Tablet] 1 each PO DAILY 04/01/20 [History] Triamcinolone Acetonide [Triamcinolone Acetonide 0.025%] 15 gm TOP BID 04/01/20 [History] hydroCHLOROthiazide [Hydrochlorothiazide] 25 mg PO DAILY 04/01/20 [History] Past Medical History HEENT History: Reports: Cataract, Impaired Vision Other HEENT History: wears glasses Cardiovascular History: Reports: Bypass, CAD, High Cholesterol, Hypertension, Stents Respiratory History: Reports: Bronchitis, Recurrent Gastrointestinal History: Reports: Diverticulosis, GERD, Other (See Below) Other Gastrointestinal History: possible diverticulitis. bowel obstruction. Has some urinary retension. Self caths 2-3 times a week. Genitourinary History: Reports: Prostate Disorder Musculoskeletal History: Reports: Arthritis Neurological History: Reports: None Psychiatric History: Reports: None Endocrine/Metabolic History: Reports: Obesity/BMI 30+ Hematologic History: Reports: B12 Deficiency Immunologic History: Reports: None Oncologic (Cancer) History: Reports: Prostate, Other (See Below) Other Oncologic History: skin Dermatologic History: Reports: Other (See Below) Other Dermatologic History: Skin CA left ear - Infectious Disease History Infectious Disease History: Reports: Measles - Past Surgical History HEENT Surgical History: Reports: Tonsillectomy Other HEENT Surgeries/Procedures: rhinoplasty Cardiovascular Surgical History: Reports: Coronary Artery Bypass, Coronary Artery Stent Other Cardiovascular Surgeries/Procedures: triple bypass Respiratory Surgical History: Reports: None GI Surgical History: Reports: Colonoscopy, EGD Male Surgical History: Reports: Circumcision, Prostatectomy Endocrine Surgical History: Reports: None Musculoskeletal Surgical History: Reports: None Social & Family History - Family History Family Medical History: No Pertinent Family History Cardiac: Reports: Hypertension Oncologic: Reports: Brain - Tobacco Use Tobacco Use Status *Q: Never Tobacco User - Caffeine Use Caffeine Use: Reports: None Other Caffeine Use: 2 cups daily - Recreational Drug Use Recreational Drug Use: No - Living Situation & Occupation Living situation: Reports: , with Spouse Occupation: Retired ED ROS GENERAL - Review of Systems Review Of Systems: Comprehensive ROS is negative, except as noted in HPI. ED EXAM, GI/ABD - Physical Exam Exam: See Below Exam Limited By: No Limitations General Appearance: Alert, No Apparent Distress Eyes: Bilateral: Abnormal EOM Ears: Normal External Exam, Hearing Grossly Normal, Normal TMs Nose: Normal Inspection Throat/Mouth: Normal Inspection Head: Atraumatic, Normocephalic Neck: Normal Inspection, Supple, Non-Tender, Full Range of Motion. No: Lymphadenopathy (L), Lymphadenopathy (R) Respiratory/Chest: No Respiratory Distress, Lungs Clear, Normal Breath Sounds Cardiovascular: Normal Peripheral Pulses, Regular Rate, Rhythm, No Edema GI/Abdominal Exam: Normal Bowel Sounds, Soft, Non-Tender Extremities: Normal Inspection, Normal Range of Motion Neurological: Alert, Oriented, Normal Cognition Psychiatric: Normal Affect, Normal Mood Skin Exam: Warm, Dry, Intact, Normal Color #1 Interpretation EKG Date: 02/10/21 Time: 02:07 Rhythm: NSR Rate (Beats/Min): 56 [place]: Normal P-Wave: Present QRS: Normal ST-T: Normal Comparison: NA - No Prior EKG Course - Vital Signs Last Recorded V/S: Last Vital Signs Temp 97.0 F 02/10/21 04:20 Pulse 58 L 02/10/21 04:20 Resp 18 02/10/21 05:20 BP 132/71 02/10/21 05:20 Pulse Ox 95 02/10/21 05:20 - Orders/Labs/Meds Orders: Active Orders 24 hr Category Date Time Status CULTURE BLOOD [BC] Stat Lab 02/10/21 02:05 Results Labs: Laboratory Tests 02/10/21 02/10/21 02/10/21 Range/Units 01:12 02:05 02:05 WBC 8.9 (5.0-10.0) 10^3/uL RBC 4.32 L (4.6-6.2) 10^6/uL Hgb 13.2 L (14.0-18.0) g/dL Hct 39.1 L (40.0-54.0) % MCV 90.5 (80-100) fL MCH 30.6 (27.0-34.0) pg MCHC 33.8 (33.0-35.0) g/dL Plt Count 192 (150-450) 10^3/uL Neut % (Auto) 78.0 H (42.2-75.2) % Lymph % (Auto) 11.9 L (20.5-50.1) % [place] % (Auto) 8.7 H (2-8) % Eos % (Auto) 0.8 L (1.0-3.0) % Baso % (Auto) 0.6 (0.0-1.0) % PT 10.3 (9.0-12.0) SEC INR 1.0 (0.9-1.2) Sodium (136-145) mmol/L Potassium (3.5-5.1) mmol/L Chloride (98-107) mmol/L Carbon Dioxide (21-32) mmol/L Anion Gap (7-13) mEq/L BUN (7-18) mg/dL Creatinine (0.70-1.30) mg/dL Est Cr Clr Drug Dosing mL/min Estimated GFR (MDRD) BUN/Creatinine Ratio (No establ ref range) Glucose (70-99) mg/dL Lactic Acid (0.4-2.0) mmol/L Calcium (8.5-10.1) mg/dL Magnesium (1.8-2.4) mg/dL Total Bilirubin (0.2-1.0) mg/dL AST (15-37) U/L ALT (16-63) U/L Alkaline Phosphatase (46-116) U/L Troponin I High Sens (<=76) pg/mL C-Reactive Protein (0.0-0.9) mg/dL Total Protein (6.4-8.2) g/dL Albumin (3.4-5.0) g/dL Globulin Albumin/Globulin Ratio Amylase (25-115) U/L Lipase (73-393) U/L Urine Color (YELLOW) Urine Appearance (CLEAR) Urine pH (5.0-9.0) Ur Specific [place] (1.005-1.030) Urine Protein (NEGATIVE) Urine Glucose (UA) (NEGATIVE) Urine Ketones (NEGATIVE) Urine Occult Blood (NEGATIVE) Urine Nitrite (NEGATIVE) Urine Bilirubin (NEGATIVE) Urine Urobilinogen (0.2-1.0) mg/dL Ur Leukocyte Esterase (NEGATIVE) Influenza Type A RNA Negative (NEGATIVE) Influenza Type B RNA Negative (NEGATIVE) SARS-CoV-2 RNA (ROMAINE) Negative (NEGATIVE) 02/10/21 02/10/21 02/10/21 Range/Units 02:05 02:05 04:40 WBC (5.0-10.0) 10^3/uL RBC (4.6-6.2) 10^6/uL Hgb (14.0-18.0) g/dL Hct (40.0-54.0) % MCV (80-100) fL MCH (27.0-34.0) pg MCHC (33.0-35.0) g/dL Plt Count (150-450) 10^3/uL Neut % (Auto) (42.2-75.2) % Lymph % (Auto) (20.5-50.1) % [place] % (Auto) (2-8) % Eos % (Auto) (1.0-3.0) % Baso % (Auto) (0.0-1.0) % PT (9.0-12.0) SEC INR (0.9-1.2) Sodium 138 (136-145) mmol/L Potassium 4.2 (3.5-5.1) mmol/L Chloride 100 (98-107) mmol/L Carbon Dioxide 27 (21-32) mmol/L Anion Gap 15.2 H (7-13) mEq/L BUN 24 H (7-18) mg/dL Creatinine 0.99 (0.70-1.30) mg/dL Est Cr Clr Drug Dosing 61.50 mL/min Estimated GFR (MDRD) > 60 BUN/Creatinine Ratio 24.2 (No establ ref range) Glucose 126 H (70-99) mg/dL Lactic Acid 0.8 (0.4-2.0) mmol/L Calcium 9.2 (8.5-10.1) mg/dL Magnesium 1.6 L (1.8-2.4) mg/dL Total Bilirubin 0.6 (0.2-1.0) mg/dL AST 25 (15-37) U/L ALT 27 (16-63) U/L Alkaline Phosphatase 50 (46-116) U/L Troponin I High Sens 7 (<=76) pg/mL C-Reactive Protein < 0.2 (0.0-0.9) mg/dL Total Protein 7.1 (6.4-8.2) g/dL Albumin 4.0 (3.4-5.0) g/dL Globulin 3.1 Albumin/Globulin Ratio 1.3 Amylase 37 (25-115) U/L Lipase 96 (73-393) U/L Urine Color Yellow (YELLOW) Urine Appearance Clear (CLEAR) Urine pH 7.5 (5.0-9.0) Ur Specific [place] 1.020 (1.005-1.030) Urine Protein Negative (NEGATIVE) Urine Glucose (UA) Negative (NEGATIVE) Urine Ketones Negative (NEGATIVE) Urine Occult Blood Negative (NEGATIVE) Urine Nitrite Negative (NEGATIVE) Urine Bilirubin Negative (NEGATIVE) Urine Urobilinogen 0.2 (0.2-1.0) mg/dL Ur Leukocyte Esterase Negative (NEGATIVE) Influenza Type A RNA (NEGATIVE) Influenza Type B RNA (NEGATIVE) SARS-CoV-2 RNA (ROMAINE) (NEGATIVE) Meds: Medications Discontinued Medications Generic Name Dose Route Start Last Admin Trade Name Arcelia PRN Reason Stop Dose Admin Amoxicillin/Clavulanate Potassium 1 tab 02/10/21 05:34 02/10/21 05:48 Amoxicillin/Clavulanate K 875-125 Mg Tab PO 02/10/21 05:35 1 tab ONETIME ONE Administration Iopamidol 100 ml 02/10/21 03:50 02/10/21 03:53 Iopamidol 612 Mg/Ml 100 Ml Bottle IVPUSH 02/10/21 03:51 100 ml ONETIME ONE Administration Ondansetron HCl 4 mg 02/10/21 05:34 02/10/21 05:48 Ondansetron 4 Mg Tab.Dis PO 02/10/21 05:35 4 mg ONETIME ONE Administration Departure - Departure Time of Disposition: 06:05 Disposition: Home, Self-Care 01 Condition: Good Clinical Impression: Nausea, Abdominal distension, Diverticulosis - Discharge Information *PRESCRIPTION DRUG MONITORING PROGRAM REVIEWED*: No *COPY OF PRESCRIPTION DRUG MONITORING REPORT IN PATIENT ANA: No Instructions: Nausea, Adult, Viral Gastroenteritis, Adult, [id number], Diverticulosis Forms: ED Department Discharge Additional Instructions: augmentin 875 one twice daily light bland diet advance slowly Clinic follow up next week sooner if worsening with fever/ chill, repeated vomiting and unable to tolerate mediation. Sepsis Event Note (ED) - Evaluation Sepsis Screening Result: No Definite Risk - Focused Exam Vital Signs: Vital Signs Temp Pulse Resp BP Pulse Ox 02/10/21 05:20 18 132/71 95 02/10/21 04:20 97.0 F 58 L 20 147/70 H 94 L 02/10/21 01:23 96.6 F L 56 L 16 151/76 H 95 - My Orders Last 24 Hours: My Active Orders 02/10/21 02:05 CULTURE BLOOD [BC] Stat - Assessment/Plan Last 24 Hours: My Active Orders 02/10/21 02:05 CULTURE BLOOD [BC] Stat
== END 2021-02-10 05:53 | disposition home or self-care (01) ==
LOC: DL.ED 01:06
DX: K57.30 Diverticulosis of large intestine without perforation or abscess without bleeding (principal); I25.810 Atherosclerosis of coronary artery bypass graft(s) without angina pectoris; E78.00 Pure hypercholesterolemia, unspecified; I10 Essential (primary) hypertension; K21.9 Gastro-esophageal reflux disease without esophagitis; M19.90 Unspecified osteoarthritis, unspecified site; E66.9 Obesity, unspecified; Z68.37 Body mass index [BMI] 37.0-37.9, adult; Z88.8 Allergy status to other drugs, medicaments and biological substances; Z79.82 Long term (current) use of aspirin; Z79.899 Other long term (current) drug therapy; Z20.822 Contact with and (suspected) exposure to COVID-19
CPT/HCPCS: 0240U; 36415; 71045; 74177; 80053; 81003; 82150; 83605; 83690; 83735; 84484; 85025; 85610; 86140; 87040; 93005; 99284; A9270; Q9967

== ENCOUNTER 2021-06-18 05:02 | Day surgery (SDC) | payer MEDICARE, OTHER ==
[~2021-06-18 05:02] MED LIST changes: -Dextrose 5%-0.45% NaCl 1,000 ML IV SCH; -Midazolam 1 MG/ML 2 ML SDV ONE; -Sodium Chloride 0.9% 10 ML Syringe FLUSH PRN; +Sodium Chloride 0.9% 10 ML Syringe FLUSH SCH; -fentaNYL 100 MCG/2 ML SDV ONE
[2021-06-18] MEDS ORDERED: Midazolam 1 MG/ML 2 ML SDV IV ONE ×5 (05:03→06:41)
[2021-06-18] MEDS ORDERED: fentaNYL 100 MCG/2 ML SDV IV ONE ×3 (05:03→06:30)
[2021-06-18] MEDS ORDERED: Sodium Chloride 0.9% 10 ML Syringe FLUSH PRN (06:00)
[2021-06-18] MEDS ORDERED: Dextrose 5%-0.45% NaCl 1,000 ML IV SCH (06:00)
[2021-06-18] MEDS ORDERED: Midazolam 1 MG/ML 2 ML SDV ONE (06:10)
[2021-06-18] MEDS ORDERED: fentaNYL 100 MCG/2 ML SDV ONE (06:10)
[2021-06-18 08:57] VITALS: BP 123/57; PULSE 58
== END 2021-06-18 09:10 | disposition home or self-care (01) ==
LOC: DL.ENDO 05:02
PROVIDERS: ATTEND Internal Medicine Gastroenterology
DX: K57.32 Diverticulitis of large intestine without perforation or abscess without bleeding (principal); K64.8 Other hemorrhoids; I25.10 Atherosclerotic heart disease of native coronary artery without angina pectoris; K21.9 Gastro-esophageal reflux disease without esophagitis; K58.9 Irritable bowel syndrome, unspecified; F41.1 Generalized anxiety disorder; E11.9 Type 2 diabetes mellitus without complications; E78.5 Hyperlipidemia, unspecified; N30.40 Irradiation cystitis without hematuria; Z95.5 Presence of coronary angioplasty implant and graft; Z01.812 Encounter for preprocedural laboratory examination; Z20.822 Contact with and (suspected) exposure to COVID-19
CPT/HCPCS: 45380; J2250; J3010; J7042; U0002; 88305

== ENCOUNTER 2022-03-20 19:19 | Inpatient (IN) | payer MEDICARE, OTHER ==
[2022-03-20 21:15] LABS: ANION GAP 13.7 mEq/L (7-13); CHLORIDE,CL 102 mmol/L (98-107); SODIUM,NA 141 mmol/L (136-145)
[2022-03-20 21:19] LABS: ESTIMATED GFR 77 mL/min (>=60)
[2022-03-20] MEDS ORDERED: Magnesium Sulfate/Water 2 GM in Premix Bag 1 BAG IV ONE (21:43)
[2022-03-20] MEDS ORDERED: Iopamidol 612 MG/ML 100 ML Bottle IVPUSH ONE (21:43)
[2022-03-20] MEDS ORDERED: Metoclopramide 10 MG/2 ML SDV IVPUSH ONE (21:48)
[2022-03-20 22:05] LABS: AMPHETAMINES,URINE NEGATIVE (NEGATIVE); BARBITURATES,URINE NEGATIVE (NEGATIVE); BENZODIAZEPINE,URINE NEGATIVE (NEGATIVE); MDMA (ECSTASY), URINE NEGATIVE (NEGATIVE); METHADONE,URINE NEGATIVE (NEGATIVE); METHAMPHETAMINES,URINE NEGATIVE (NEGATIVE); OPIATES,URINE NEGATIVE (NEGATIVE); OXYCODONE,URINE NEGATIVE (NEGATIVE); PHENCYCLIDINE,URINE NEGATIVE (NEGATIVE); TCA,URINE NEGATIVE (NEGATIVE)
[2022-03-20] MEDS ORDERED: Ketorolac 30 MG/ML SDV IVPUSH ONE (22:43)
[2022-03-20] MEDS ORDERED: Benzocaine 20% Oral Spray 59.2 ML Canister MUCMEM ONE (23:22)
[2022-03-20] MEDS ORDERED: Lidocaine 2% Viscous Solution 15 ML UD PO ONE (23:33)
[2022-03-21] MEDS ORDERED: D5 1/2 NS w/ 20 mEq/L KCl 1,000 ML IV SCH (01:15)
[2022-03-21] MEDS ORDERED: HYDROmorphone 1 MG/ML Syringe IVPUSH ONE (03:09)
[2022-03-21] MEDS ORDERED: Ondansetron 4 MG/2 ML SDV IVPUSH ONE (03:09)
[2022-03-21 05:44] LABS: ANION GAP 14.6 mEq/L (7-13)
[2022-03-21] MEDS ORDERED: Sodium Chloride 0.9% 1,000 ML IV ONE ×2 (05:57→07:23)
[2022-03-21] MEDS ORDERED: Albuterol/Ipratropium 3.0-0.5 MG/3 ML Neb Soln NEB PRN (11:29)
[2022-03-21] MEDS ORDERED: Acetaminophen 325 MG Tab PO PRN (11:29)
[2022-03-21] MEDS ORDERED: Ketorolac 30 MG/ML SDV IM PRN (11:29)
[2022-03-21] MEDS ORDERED: HYDROmorphone 0.5 MG/0.5 ML Syringe IVPUSH PRN (11:29)
[2022-03-21] MEDS ORDERED: Glucagon,Human Recombinant 1 MG Vial IM PRN (11:49)
[2022-03-21] MEDS ORDERED: 50% Dextrose in Water 50 ML Syringe IVPUSH PRN (11:49)
[2022-03-21] MEDS ORDERED: Dextrose 5%-0.9% NaCl with KCl 1,000 ML IV SCH (12:00)
[2022-03-21] MEDS: Metoclopramide 10 MG/2 ML SDV IVPUSH SCH ×2 (13:34→18:07)
[2022-03-21] MEDS: Insulin Lispro 100 Units/ML 3 ML Vial SUBCUT SCH ×2 (13:35→17:35)
[2022-03-21] MEDS ORDERED: Metoclopramide 10 MG/2 ML SDV IVPUSH PRN (19:53)
[2022-03-22 07:45] LABS: ANION GAP 11.8 mEq/L (7-13)
[2022-03-22] MEDS: Insulin Lispro 100 Units/ML 3 ML Vial SUBCUT SCH ×2 (08:00→11:36)
[2022-03-22 08:13] VITALS: BP 116/71; PULSE 60
[2022-03-23] MEDS ORDERED: amLODIPine 5 MG Tab PO SCH (09:00)
[2022-03-23] MEDS ORDERED: Atenolol 50 MG Tab PO SCH (09:00)
== END 2022-03-22 13:38 | disposition home or self-care (01) | DRG 392 ==
LOC: DL.ED 19:19 → DL.MS 03-21 10:33
PROVIDERS: ADMIT Internal Medicine; ATTEND Internal Medicine
PROC: 0D9670Z Drainage of Stomach with Drainage Device, Via Natural or Artificial Opening (ICD-10-PCS; principal; 2022-03-21)
DX: A05.9 Bacterial foodborne intoxication, unspecified (principal); E87.20 Acidosis, unspecified; I25.10 Atherosclerotic heart disease of native coronary artery without angina pectoris; E78.00 Pure hypercholesterolemia, unspecified; I10 Essential (primary) hypertension; K21.9 Gastro-esophageal reflux disease without esophagitis; K58.9 Irritable bowel syndrome, unspecified; M19.90 Unspecified osteoarthritis, unspecified site; Z20.822 Contact with and (suspected) exposure to COVID-19; H54.7 Unspecified visual loss; E78.5 Hyperlipidemia, unspecified; R33.9 Retention of urine, unspecified; K57.90 Diverticulosis of intestine, part unspecified, without perforation or abscess without bleeding; N42.9 Disorder of prostate, unspecified; E53.9 Vitamin B deficiency, unspecified; E53.8 Deficiency of other specified B group vitamins; E66.9 Obesity, unspecified; E11.65 Type 2 diabetes mellitus with hyperglycemia; K76.89 Other specified diseases of liver; N28.1 Cyst of kidney, acquired; D73.4 Cyst of spleen; E83.42 Hypomagnesemia; Z85.46 Personal history of malignant neoplasm of prostate; Z95.1 Presence of aortocoronary bypass graft; Z95.5 Presence of coronary angioplasty implant and graft; Z88.8 Allergy status to other drugs, medicaments and biological substances; Z79.82 Long term (current) use of aspirin; Z79.899 Other long term (current) drug therapy; I25.2 Old myocardial infarction; Z92.3 Personal history of irradiation; Z68.36 Body mass index [BMI] 36.0-36.9, adult; Z90.89 Acquired absence of other organs; Z85.828 Personal history of other malignant neoplasm of skin
CPT/HCPCS: 36415; 43752; 71045; 74018; 74177; 80048; 80053; 80305-QW; 80307; 81001; 82150; 82947; 83605; 83690; 83735; 85025; 86140; 94762; 96361; 96365; 96366; 96367; 96375; 99285-25; C1758; J1170; J1885; J2405; J2765; J3475; J3480; J7030; Q9967; U0002

== ENCOUNTER 2023-08-01 21:20 | Emergency (ER) | payer MEDICARE, OTHER ==
[2023-08-01] MEDS: Sodium Chloride 0.9% 10 ML Syringe FLUSH PRN (22:11)
[2023-08-01 22:15] VITALS: BP 142/68; PULSE 56
[2023-08-01 22:28] LABS: BASOPHILS PERCENT AUTO 0.6 % (0.0-1.0); EOSINOPHILS PERCENT AUTO 1.4 % (1.0-3.0); HEMATOCRIT 40.6 % (40.0-54.0); HEMOGLOBIN 13.6 g/dL (14.0-18.0); LYMPHOCYTES PERCENT AUTO 11.4 % (20.5-50.1); MEAN CORPUSCULAR HEMOGLOBIN 30.3 pg (27.0-34.0); MEAN CORPUSCULAR HGB CONC 33.5 g/dL (33.0-35.0); MEAN CORPUSCULAR VOLUME 90.4 fL (80-100); MONOCYTES PERCENT AUTO 10.2 % (2-8); NEUTROPHILS PERCENT AUTO 76.4 % (42.2-75.2); PLATELET COUNT,PLT 210 10^3/uL (150-450); RED BLOOD CELL COUNT 4.49 10^6/uL (4.6-6.2); WHITE BLOOD CELL COUNT,WBC 10.4 10^3/uL (5.0-10.0)
[2023-08-01 22:30] LABS: APPEARANCE,URINE SLIGHTLY CLOUDY (CLEAR); BILIRUBIN,URINE NEGATIVE (NEGATIVE); COLOR,URINE YELLOW (YELLOW); GLUCOSE,URINE NEGATIVE (NEGATIVE); KETONES,URINE NEGATIVE (NEGATIVE); LEUKOCYTE ESTERASE,URINE SMALL (NEGATIVE); NITRITE,URINE NEGATIVE (NEGATIVE); OCCULT BLOOD,URINE LARGE (NEGATIVE); PROTEIN,URINE 100 (NEGATIVE); UROBILINOGEN,URINE 0.2 mg/dL (0.2-1.0)
[2023-08-01 22:42] LABS: A/G RATIO 1.1; BILIRUBIN TOTAL 0.7 mg/dL (0.2-1.0); BUN/CREATININE RATIO 25.9 (No establ ref range); CALCIUM 8.9 mg/dL (8.5-10.1); CREATININE 1.12 mg/dL (0.70-1.30); EST CRCL DRUG DOSING (CG) 52.6 mL/min; PROTEIN TOTAL,TP 7.7 g/dL (6.4-8.2)
[2023-08-01 22:47] LABS: LACTIC ACID 1.2 mmol/L (0.4-2.0)
[2023-08-01 22:52] LABS: MAGNESIUM 0.9 mg/dL (1.8-2.4)
[2023-08-01 22:53] LABS: RBC,URINE 40-50 /HPF (0-5); WBC,URINE 30-40 /HPF (0-5/HPF)
[2023-08-01 22:54] LABS: BACTERIA,URINE FEW /HPF (0-FEW/HPF); EPITHELIAL CELLS,URINE FEW /HPF (NOT SEEN)
[2023-08-01 22:55] LABS: HYALINE CASTS,URINE FEW; MUCUS,URINE MODERATE /LPF (NOT SEEN)
[2023-08-01] MEDS: Magnesium Sulfate/Water 2 GM in Premix Bag 1 BAG IV SCH (23:09)
[2023-08-01] MEDS: Magnesium Sulfate/Water 2 GM in Premix Bag 1 BAG IV ONE (23:09)
== END 2023-08-01 23:56 | disposition home or self-care (01) ==
LOC: DL.ED 21:20
DX: R31.0 Gross hematuria (principal); N36.9 Urethral disorder, unspecified; E83.42 Hypomagnesemia; I10 Essential (primary) hypertension; E78.00 Pure hypercholesterolemia, unspecified; K21.9 Gastro-esophageal reflux disease without esophagitis; E11.9 Type 2 diabetes mellitus without complications; E66.9 Obesity, unspecified; I25.10 Atherosclerotic heart disease of native coronary artery without angina pectoris; Z88.8 Allergy status to other drugs, medicaments and biological substances; Z95.5 Presence of coronary angioplasty implant and graft; Z95.1 Presence of aortocoronary bypass graft; Z79.82 Long term (current) use of aspirin; Z79.899 Other long term (current) drug therapy; Z79.84 Long term (current) use of oral hypoglycemic drugs; Z68.35 Body mass index [BMI] 35.0-35.9, adult
CPT/HCPCS: 36415; 80053; 81001; 83605; 83690; 83735; 85025; 87086; 96365; 99284; J3475; J3490

== ENCOUNTER 2023-08-05 18:43 | Emergency (ER) | payer MEDICARE, OTHER ==
[2023-08-05] MEDS: Sodium Chloride 0.9% 10 ML Syringe FLUSH PRN (19:49)
[2023-08-05] MEDS: Sodium Chloride 0.9% 500 ML IV SCH (19:50)
[2023-08-05 20:01] LABS: BASOPHILS PERCENT AUTO 0.8 % (0.0-1.0); EOSINOPHILS PERCENT AUTO 1.3 % (1.0-3.0); HEMATOCRIT 37.6 % (40.0-54.0); HEMOGLOBIN 12.8 g/dL (14.0-18.0); MEAN CORPUSCULAR HEMOGLOBIN 30.7 pg (27.0-34.0); MEAN CORPUSCULAR VOLUME 90.2 fL (80-100); MONOCYTES PERCENT AUTO 9.1 % (2-8); NEUTROPHILS PERCENT AUTO 77.8 % (42.2-75.2); PLATELET COUNT,PLT 215 10^3/uL (150-450); RED BLOOD CELL COUNT 4.17 10^6/uL (4.6-6.2); WHITE BLOOD CELL COUNT,WBC 9.7 10^3/uL (5.0-10.0)
[2023-08-05 20:03] VITALS: PULSE 60
[2023-08-05 20:20] LABS: A/G RATIO 1.1; ALBUMIN 3.7 g/dL (3.4-5.0); ANION GAP 14.9 mEq/L (7-13); BILIRUBIN TOTAL 0.5 mg/dL (0.2-1.0); BUN/CREATININE RATIO 17.4 (No establ ref range); CALCIUM 8.6 mg/dL (8.5-10.1); CREATININE 1.15 mg/dL (0.70-1.30); EST CRCL DRUG DOSING (CG) 51.23 mL/min; POTASSIUM,K 3.9 mmol/L (3.5-5.1); PROTEIN TOTAL,TP 7.1 g/dL (6.4-8.2)
[2023-08-05 20:52] LABS: APPEARANCE,URINE CLEAR (CLEAR); BILIRUBIN,URINE NEGATIVE (NEGATIVE); COLOR,URINE LIGHT YELLOW (YELLOW); GLUCOSE,URINE NEGATIVE (NEGATIVE); KETONES,URINE NEGATIVE (NEGATIVE); LEUKOCYTE ESTERASE,URINE NEGATIVE (NEGATIVE); NITRITE,URINE NEGATIVE (NEGATIVE); OCCULT BLOOD,URINE NEGATIVE (NEGATIVE); PROTEIN,URINE NEGATIVE (NEGATIVE); UROBILINOGEN,URINE 0.2 mg/dL (0.2-1.0)
[2023-08-05] MEDS: Iopamidol 612 MG/ML 100 ML Bottle IVPUSH ONE (20:58)
[2023-08-05 21:19] VITALS: BP 131/59
[2023-08-05] MEDS: metroNIDAZOLE 250 MG Tab PO ONE (21:55)
[2023-08-05] MEDS: Levofloxacin 500 MG Tab PO ONE (21:55)
[2023-08-05] MEDS: Acetaminophen/HYDROcodone 325-5 MG Tab PO ONE (21:56)
== END 2023-08-05 22:08 | disposition home or self-care (01) ==
LOC: DL.ED 18:43
DX: K57.32 Diverticulitis of large intestine without perforation or abscess without bleeding (principal); I10 Essential (primary) hypertension; I25.810 Atherosclerosis of coronary artery bypass graft(s) without angina pectoris; M19.90 Unspecified osteoarthritis, unspecified site; E78.00 Pure hypercholesterolemia, unspecified; E66.9 Obesity, unspecified; E11.9 Type 2 diabetes mellitus without complications; Z68.36 Body mass index [BMI] 36.0-36.9, adult; Z79.82 Long term (current) use of aspirin; Z79.84 Long term (current) use of oral hypoglycemic drugs; Z79.899 Other long term (current) drug therapy; Z88.8 Allergy status to other drugs, medicaments and biological substances
CPT/HCPCS: 36415; 74177; 80053; 81003; 85025; 99284; A9270-GY; J3490; J7040; Q9967

== ENCOUNTER 2023-08-07 07:50 | Emergency (ER) | payer MEDICARE, OTHER | END 2023-08-07 08:08 | LOC: DL.ED 07:50 | DX: Z53.21 Procedure and treatment not carried out due to patient leaving prior to being seen by health care provider (principal) ==

== ENCOUNTER 2023-08-09 11:39 | Emergency (ER) | payer MEDICARE, OTHER ==
[2023-08-09 11:59] VITALS: BP 164/75; PULSE 55
== END 2023-08-09 12:22 | disposition home or self-care (01) ==
LOC: DL.ED 11:39
DX: E11.42 Type 2 diabetes mellitus with diabetic polyneuropathy (principal); T36.8X5A Adverse effect of other systemic antibiotics, initial encounter; I25.10 Atherosclerotic heart disease of native coronary artery without angina pectoris; I10 Essential (primary) hypertension; E66.9 Obesity, unspecified; E78.00 Pure hypercholesterolemia, unspecified; Z95.1 Presence of aortocoronary bypass graft; Z95.5 Presence of coronary angioplasty implant and graft; Z79.899 Other long term (current) drug therapy; Z79.84 Long term (current) use of oral hypoglycemic drugs; Z79.82 Long term (current) use of aspirin; Z88.8 Allergy status to other drugs, medicaments and biological substances
CPT/HCPCS: 99283; 99284

== ENCOUNTER 2023-08-28 06:23 | Day surgery (SDC) | payer MEDICARE, OTHER ==
[~2023-08-28 06:23] MED LIST changes: +Midazolam 1 MG/ML 2 ML SDV ONE; -Sodium Chloride 0.9% 10 ML Syringe FLUSH SCH; +fentaNYL 100 MCG/2 ML SDV ONE
[2023-08-28] MEDS ORDERED: fentaNYL 100 MCG/2 ML SDV IV ONE (06:24)
[2023-08-28] MEDS ORDERED: Midazolam 1 MG/ML 2 ML SDV IV ONE (06:24)
[2023-08-28] MEDS: Dextrose 5%-0.45% NaCl 1,000 ML IV SCH (06:54)
[2023-08-28] MEDS: fentaNYL 100 MCG/2 ML SDV IV ONE ×2 (07:13→07:14)
[2023-08-28] MEDS: Midazolam 1 MG/ML 2 ML SDV IV ONE ×4 (07:15→07:26)
[2023-08-28 08:51] VITALS: BP 123/51; PULSE 50
== END 2023-08-28 08:54 | disposition home or self-care (01) ==
LOC: DL.ENDO 06:23
PROVIDERS: ATTEND Internal Medicine Gastroenterology
DX: D12.2 Benign neoplasm of ascending colon (principal); K64.8 Other hemorrhoids; I10 Essential (primary) hypertension; K57.92 Diverticulitis of intestine, part unspecified, without perforation or abscess without bleeding; E78.00 Pure hypercholesterolemia, unspecified; I25.10 Atherosclerotic heart disease of native coronary artery without angina pectoris; Z95.1 Presence of aortocoronary bypass graft; Z79.899 Other long term (current) drug therapy
CPT/HCPCS: 45380; 45385; J2250; J3010; J7042; 88305

== ENCOUNTER 2024-03-13 19:28 | Emergency (ER) | payer MEDICARE, OTHER ==
[2024-03-13 19:43] VITALS: BP 172/62; PULSE 60
[2024-03-13 20:01] LABS: APPEARANCE,URINE TURBID (CLEAR); BILIRUBIN,URINE NEGATIVE (NEGATIVE); COLOR,URINE RED (YELLOW); GLUCOSE,URINE NEGATIVE (NEGATIVE); KETONES,URINE TRACE (NEGATIVE); LEUKOCYTE ESTERASE,URINE NEGATIVE (NEGATIVE); NITRITE,URINE NEGATIVE (NEGATIVE); OCCULT BLOOD,URINE LARGE (NEGATIVE); PH,URINE 5.5 (5.0-9.0); PROTEIN,URINE 100 (NEGATIVE)
[2024-03-13 20:11] LABS: BACTERIA,URINE FEW /HPF (0-FEW/HPF); EPITHELIAL CELLS,URINE FEW /HPF (NOT SEEN); MUCUS,URINE FEW /LPF (NOT SEEN); RBC,URINE PACKED /HPF (0-5)
[2024-03-13] MEDS: Oxybutynin 5 MG Tab.ER PO ONE (20:17)
== END 2024-03-13 20:27 | disposition home or self-care (01) ==
LOC: DL.ED 19:28
DX: N40.1 Benign prostatic hyperplasia with lower urinary tract symptoms (principal); R31.9 Hematuria, unspecified; I10 Essential (primary) hypertension; E78.00 Pure hypercholesterolemia, unspecified; I25.10 Atherosclerotic heart disease of native coronary artery without angina pectoris; K21.9 Gastro-esophageal reflux disease without esophagitis; E11.9 Type 2 diabetes mellitus without complications; E66.9 Obesity, unspecified; Z98.2 Presence of cerebrospinal fluid drainage device; Z79.899 Other long term (current) drug therapy; Z79.82 Long term (current) use of aspirin; Z88.8 Allergy status to other drugs, medicaments and biological substances
CPT/HCPCS: 81001; 99283; A9270

== ENCOUNTER 2024-08-03 16:53 | Emergency (ER) | payer MEDICARE, OTHER ==
[2024-08-03] MEDS ORDERED: Sodium Chloride 0.9% 10 ML Syringe FLUSH PRN (17:29)
[2024-08-03 17:50] LABS: HEMATOCRIT 38.5 % (40.0-54.0); HEMOGLOBIN 12.9 g/dL (14.0-18.0); MEAN CORPUSCULAR HEMOGLOBIN 30.5 pg (27.0-34.0); MEAN CORPUSCULAR HGB CONC 33.5 g/dL (33.0-35.0); PLATELET COUNT,PLT 203 10^3/uL (150-450); RED BLOOD CELL COUNT 4.23 10^6/uL (4.6-6.2); WHITE BLOOD CELL COUNT,WBC 10.9 10^3/uL (5.0-10.0)
[2024-08-03 17:51] LABS: BASOPHILS PERCENT AUTO 0.6 % (0.0-1.0); EOSINOPHILS PERCENT AUTO 2.6 % (1.0-3.0); LYMPHOCYTES PERCENT AUTO 8.8 % (20.5-50.1); MONOCYTES PERCENT AUTO 8.3 % (2-8); NEUTROPHILS PERCENT AUTO 79.7 % (42.2-75.2)
[2024-08-03 18:02] LABS: EOSINOPHILS PERCENT MAN 2 % (1-3); LYMPHOCYTES PERCENT MAN 7 % (20-50); MONOCYTES PERCENT MAN 7 % (2-8); SEG NEUTROPHILS PERCENT MAN 84 % (42-75)
[2024-08-03 18:06] LABS: A/G RATIO 1.2; ALBUMIN 3.8 g/dL (3.4-5.0); ANION GAP 14.7 mEq/L (7-13); BILIRUBIN TOTAL 0.7 mg/dL (0.2-1.0); BUN/CREATININE RATIO 24.5 (No establ ref range); CALCIUM 9.5 mg/dL (8.5-10.1); CREATININE 1.1 mg/dL (0.70-1.30); EST CRCL DRUG DOSING (CG) 52.67 mL/min; POTASSIUM,K 4.7 mmol/L (3.5-5.1); PROTEIN TOTAL,TP 7.1 g/dL (6.4-8.2)
[2024-08-03 18:18] LABS: APPEARANCE,URINE CLEAR (CLEAR); BILIRUBIN,URINE NEGATIVE (NEGATIVE); COLOR,URINE YELLOW (YELLOW); GLUCOSE,URINE NEGATIVE (NEGATIVE); KETONES,URINE NEGATIVE (NEGATIVE); LEUKOCYTE ESTERASE,URINE TRACE (NEGATIVE); NITRITE,URINE POSITIVE (NEGATIVE); OCCULT BLOOD,URINE TRACE-INTACT (NEGATIVE); PH,URINE 6.5 (5.0-9.0); PROTEIN,URINE 30 (NEGATIVE); UROBILINOGEN,URINE 0.2 mg/dL (0.2-1.0)
[2024-08-03] MEDS: Ondansetron 4 MG/2 ML SDV IVPUSH ONE (18:21)
[2024-08-03 18:26] LABS: AMORPHOUS SEDIMENT,URINE FEW /HPF (NOT SEEN); BACTERIA,URINE MODERATE /HPF (0-FEW/HPF); EPITHELIAL CELLS,URINE FEW /HPF (NOT SEEN); MUCUS,URINE FEW /LPF (NOT SEEN); RBC,URINE 0-5 /HPF (0-5); WBC,URINE 0-5 /HPF (0-5/HPF)
[2024-08-03] MEDS: cefTRIAXone 2 GM Vial IVPUSH ONE (18:37)
[2024-08-03 20:56] VITALS: BP 139/71; PULSE 57
[2024-08-03] MEDS: Azithromycin 250 MG Tab PO ONE (21:33)
== END 2024-08-03 20:50 ==
LOC: DL.ED 16:53
DX: K56.7 Ileus, unspecified (principal); N39.0 Urinary tract infection, site not specified; J18.9 Pneumonia, unspecified organism; I10 Essential (primary) hypertension; E78.00 Pure hypercholesterolemia, unspecified; I25.10 Atherosclerotic heart disease of native coronary artery without angina pectoris; K21.9 Gastro-esophageal reflux disease without esophagitis; E66.9 Obesity, unspecified; Z68.36 Body mass index [BMI] 36.0-36.9, adult; Z79.899 Other long term (current) drug therapy; Z79.84 Long term (current) use of oral hypoglycemic drugs; Z79.82 Long term (current) use of aspirin; Z88.8 Allergy status to other drugs, medicaments and biological substances
CPT/HCPCS: 36415; 74176; 80053; 81001; 83690; 85025; 87086; 96374; 96375; 99285; J0696; J2405

== ENCOUNTER 2024-11-05 06:05 | Emergency (ER) | payer MEDICARE, OTHER ==
[2024-11-05 06:29] LABS: PLATELET COUNT,PLT 164 10^3/uL (150-450); RED BLOOD CELL COUNT 3.97 10^6/uL (4.6-6.2); WHITE BLOOD CELL COUNT,WBC 5.1 10^3/uL (5.0-10.0)
[2024-11-05 06:30] LABS: BASOPHILS PERCENT AUTO 1.0 % (0.0-1.0); EOSINOPHILS PERCENT AUTO 3.1 % (1.0-3.0); LYMPHOCYTES PERCENT AUTO 14.9 % (20.5-50.1); MONOCYTES PERCENT AUTO 13.4 % (2-8); NEUTROPHILS PERCENT AUTO 67.6 % (42.2-75.2)
[2024-11-05 06:47] LABS: A/G RATIO 1.1; ALANINE AMINOTRANSFERASE,ALT 33.0 U/L (16-63); ASPARTATE AMNIOTRANSFERASE,AST 29.0 U/L (15-37); BILIRUBIN TOTAL 0.7 mg/dL (0.2-1.0); BLOOD UREA NITROGEN,BUN 17.0 mg/dL (7-18); CARBON DIOXIDE,CO2 31.0 mmol/L (21-32); CHLORIDE,CL 103.0 mmol/L (98-107); CREATININE 0.99 mg/dL (0.70-1.30); EST CRCL DRUG DOSING (CG) 56.62 mL/min; ESTIMATED GFR 77.0 mL/min (>=60); GLUCOSE RANDOM 115.0 mg/dL (70-99); POTASSIUM,K 3.6 mmol/L (3.5-5.1); PROTEIN TOTAL,TP 6.6 g/dL (6.4-8.2); SODIUM,NA 139.0 mmol/L (136-145)
[2024-11-05 06:52] LABS: INR 1.0 (0.9-1.2); PTT,PARTIAL THROMBOPLSTIN TIME 24.0 SEC (22.0-34.0)
[2024-11-05 06:54] LABS: APPEARANCE,URINE SLIGHTLY CLOUDY (CLEAR); GLUCOSE,URINE NEGATIVE (NEGATIVE); OCCULT BLOOD,URINE TRACE-INTACT (NEGATIVE)
[2024-11-05 07:02] LABS: B-TYPE NATRIURETIC PEPTIDE,BNP 230 pg/ml (0-100)
[2024-11-05 07:05] LABS: EPITHELIAL CELLS,URINE FEW /HPF (NOT SEEN)
[2024-11-05 07:17] LABS: BAND PERCENT MAN 4 %; EOSINOPHILS PERCENT MAN 2 % (1-3); LYMPHOCYTES PERCENT MAN 21 % (20-50); MONOCYTES PERCENT MAN 10 % (2-8); SEG NEUTROPHILS PERCENT MAN 63 % (42-75)
[2024-11-05] MEDS: Magnesium Sulfate 2 GM/50 mL 2 GM in Premix Bag 1 BAG IV ONE (07:25)
[2024-11-05] MEDS: Magnesium Sulfate 4 GM/100 mL 4 GM in Premix Bag 1 BAG IV ONE (07:26)
[2024-11-05 09:39] VITALS: BP 122/66; PULSE 84
== END 2024-11-05 09:38 | disposition other institution (70) ==
LOC: DL.ED 06:05
DX: I48.20 Chronic atrial fibrillation, unspecified (principal); J18.9 Pneumonia, unspecified organism; I25.10 Atherosclerotic heart disease of native coronary artery without angina pectoris; E78.00 Pure hypercholesterolemia, unspecified; I10 Essential (primary) hypertension; K21.9 Gastro-esophageal reflux disease without esophagitis; E11.9 Type 2 diabetes mellitus without complications; Z88.8 Allergy status to other drugs, medicaments and biological substances; Z95.5 Presence of coronary angioplasty implant and graft; Z79.82 Long term (current) use of aspirin; Z79.899 Other long term (current) drug therapy; Z79.85 Long-term (current) use of injectable non-insulin antidiabetic drugs; Z95.1 Presence of aortocoronary bypass graft
CPT/HCPCS: 36415; 71045; 80053; 81001; 83735; 83880; 84145; 84484; 85025; 85379; 85610; 85730; 87086; 87088; 87186; 93005; 96365; 96366; 96368; 96375; 99285; J0456; J0696; J3475; J7050

== ENCOUNTER 2025-03-08 11:21 | Inpatient (IN) | payer MEDICARE, OTHER ==
[2025-03-08 12:03] LABS: PLATELET COUNT,PLT 182 10^3/uL (150-450); RED BLOOD CELL COUNT 4.02 10^6/uL (4.6-6.2); WHITE BLOOD CELL COUNT,WBC 6.1 10^3/uL (5.0-10.0)
[2025-03-08 12:07] LABS: BASOPHILS PERCENT AUTO 0.8 % (0.0-1.0); EOSINOPHILS PERCENT AUTO 2.3 % (1.0-3.0); LYMPHOCYTES PERCENT AUTO 14.6 % (20.5-50.1); MONOCYTES PERCENT AUTO 11.2 % (2-8); NEUTROPHILS PERCENT AUTO 71.1 % (42.2-75.2)
[2025-03-08 12:23] LABS: A/G RATIO 1.0; ALANINE AMINOTRANSFERASE,ALT 22 U/L (16-63); ASPARTATE AMNIOTRANSFERASE,AST 27 U/L (15-37); BILIRUBIN TOTAL 0.6 mg/dL (0.2-1.0); BLOOD UREA NITROGEN,BUN 20 mg/dL (7-18); CARBON DIOXIDE,CO2 26 mmol/L (21-32); CHLORIDE,CL 103 mmol/L (98-107); CREATININE 1.25 mg/dL (0.70-1.30); GLUCOSE RANDOM 128 mg/dL (70-99); POTASSIUM,K 4.0 mmol/L (3.5-5.1); PROTEIN TOTAL,TP 6.9 g/dL (6.4-8.2); SODIUM,NA 141 mmol/L (136-145)
[2025-03-08 12:26] LABS: INR 1.1 (0.9-1.2)
[2025-03-08 12:28] LABS: ESTIMATED GFR 57 mL/min (>=60)
[2025-03-08 12:47] LABS: LYMPHOCYTES PERCENT MAN 18 % (20-50); MONOCYTES PERCENT MAN 9 % (2-8); SEG NEUTROPHILS PERCENT MAN 72 % (42-75)
[2025-03-08 12:48] LABS: EOSINOPHILS PERCENT MAN 1 % (1-3)
[2025-03-08] MEDS: Iopamidol 755 Mg/ML 100 ML Bottle IVPUSH ONE (13:08)
[2025-03-08] MEDS: Lidocaine 2% Jelly 10 ML Urojet MUCMEM ONE (13:30)
[2025-03-08 13:31] LABS: APPEARANCE,URINE TURBID (CLEAR); GLUCOSE,URINE 100 (NEGATIVE); OCCULT BLOOD,URINE LARGE (NEGATIVE)
[2025-03-08 13:34] LABS: EPITHELIAL CELLS,URINE FEW /HPF (NOT SEEN)
[2025-03-08] MEDS ORDERED: Ondansetron 4 MG/2 ML SDV IVPUSH PRN (17:04)
[2025-03-08] MEDS ORDERED: Sodium Chloride 0.9% 10 ML Syringe FLUSH PRN (17:04)
[2025-03-08] MEDS ORDERED: Sennosides/Docusate Sodium 50-8.6 MG Tab PO PRN (17:04)
[2025-03-08 18:20] LABS: IRON,FE 65.0 ug/dL (65-175); PERCENT FE SATURATION 17.1 % (20.0-50.0)
[2025-03-08 18:32] LABS: FOLIC ACID 12.2 ng/mL (8.6-58.9)
[2025-03-08] MEDS: Sodium Chloride 0.9% 10 ML Syringe FLUSH SCH (20:36)
[2025-03-09 06:09] LABS: BASOPHILS PERCENT AUTO 0.5 % (0.0-1.0); EOSINOPHILS PERCENT AUTO 1.8 % (1.0-3.0); LYMPHOCYTES PERCENT AUTO 11.7 % (20.5-50.1); MONOCYTES PERCENT AUTO 12.1 % (2-8); NEUTROPHILS PERCENT AUTO 73.9 % (42.2-75.2); PLATELET COUNT,PLT 203 10^3/uL (150-450); RED BLOOD CELL COUNT 3.93 10^6/uL (4.6-6.2); WHITE BLOOD CELL COUNT,WBC 7.4 10^3/uL (5.0-10.0)
[2025-03-09 06:31] LABS: ALANINE AMINOTRANSFERASE,ALT 18.0 U/L (16-63); ASPARTATE AMNIOTRANSFERASE,AST 23.0 U/L (15-37); BILIRUBIN TOTAL 0.5 mg/dL (0.2-1.0); BLOOD UREA NITROGEN,BUN 20.0 mg/dL (7-18); CARBON DIOXIDE,CO2 27.0 mmol/L (21-32); CHLORIDE,CL 102.0 mmol/L (98-107); CREATININE 1.24 mg/dL (0.70-1.30); EST CRCL DRUG DOSING (CG) 41.45 mL/min; GLUCOSE RANDOM 119.0 mg/dL (70-99); POTASSIUM,K 3.5 mmol/L (3.5-5.1); PROTEIN TOTAL,TP 6.3 g/dL (6.4-8.2); SODIUM,NA 138.0 mmol/L (136-145)
[2025-03-09 06:36] LABS: A/G RATIO 0.97; ESTIMATED GFR 58.0 mL/min (>=60)
[2025-03-09] MEDS: Magnesium Sulfate 2 GM/50 mL 2 GM in Premix Bag 1 BAG IV ONE (11:11)
[2025-03-09] MEDS: Potassium Chloride 10 MEQ Tab.ER PO ONE (13:01)
[2025-03-09] MEDS: Potassium Chloride 10 MEQ Tab.ER PO SCH (13:02)
[2025-03-10 06:45] LABS: PLATELET COUNT,PLT 201 10^3/uL (150-450); RED BLOOD CELL COUNT 3.73 10^6/uL (4.6-6.2); WHITE BLOOD CELL COUNT,WBC 6.3 10^3/uL (5.0-10.0)
[2025-03-10 07:03] LABS: ALANINE AMINOTRANSFERASE,ALT 20.0 U/L (16-63); ASPARTATE AMNIOTRANSFERASE,AST 26.0 U/L (15-37); BILIRUBIN TOTAL 0.4 mg/dL (0.2-1.0); BLOOD UREA NITROGEN,BUN 27.0 mg/dL (7-18); CARBON DIOXIDE,CO2 26.0 mmol/L (21-32); CHLORIDE,CL 103.0 mmol/L (98-107); CREATININE 1.15 mg/dL (0.70-1.30); EST CRCL DRUG DOSING (CG) 44.69 mL/min; GLUCOSE RANDOM 124.0 mg/dL (70-99); POTASSIUM,K 4.1 mmol/L (3.5-5.1); PROTEIN TOTAL,TP 6.3 g/dL (6.4-8.2); SODIUM,NA 140.0 mmol/L (136-145)
[2025-03-10 07:11] LABS: A/G RATIO 0.97; ESTIMATED GFR 64.0 mL/min (>=60)
[2025-03-10 07:21] LABS: LYMPHOCYTES PERCENT AUTO 14.4 % (20.5-50.1); NEUTROPHILS PERCENT AUTO 69.6 % (42.2-75.2)
[2025-03-10 07:22] LABS: BASOPHILS PERCENT AUTO 0.6 % (0.0-1.0); EOSINOPHILS PERCENT AUTO 3.2 % (1.0-3.0); MONOCYTES PERCENT AUTO 12.2 % (2-8)
[2025-03-10 08:34] VITALS: BP 114/52; PULSE 61
[2025-03-10 08:43] LABS: EOSINOPHILS PERCENT MAN 5 % (1-3); LYMPHOCYTES PERCENT MAN 17 % (20-50); MONOCYTES PERCENT MAN 11 % (2-8); SEG NEUTROPHILS PERCENT MAN 67 % (42-75)
[2025-03-10] MEDS: Take Home: Sulfamethoxazole/Trimethoprim 800-160 MG Tab, 6 Tab Pack PO ONE (10:17)
== END 2025-03-10 10:36 | disposition home or self-care (01) | DRG 696 ==
LOC: DL.ED 11:21 → DL.MS 16:14
PROVIDERS: ADMIT Student in an Organized Health Care Education/Training Program; ATTEND Student in an Organized Health Care Education/Training Program
DX: R31.0 Gross hematuria (principal); R31.9 Hematuria, unspecified; E78.00 Pure hypercholesterolemia, unspecified; Z68.41 Body mass index [BMI] 40.0-44.9, adult; I48.91 Unspecified atrial fibrillation; I10 Essential (primary) hypertension; D64.9 Anemia, unspecified; E83.42 Hypomagnesemia; G47.33 Obstructive sleep apnea (adult) (pediatric); H26.9 Unspecified cataract; H54.7 Unspecified visual loss; I25.10 Atherosclerotic heart disease of native coronary artery without angina pectoris; K21.9 Gastro-esophageal reflux disease without esophagitis; M19.90 Unspecified osteoarthritis, unspecified site; F41.9 Anxiety disorder, unspecified; E11.9 Type 2 diabetes mellitus without complications; E66.9 Obesity, unspecified; Z90.49 Acquired absence of other specified parts of digestive tract; Z95.5 Presence of coronary angioplasty implant and graft; Z88.8 Allergy status to other drugs, medicaments and biological substances; Z79.82 Long term (current) use of aspirin; Z79.899 Other long term (current) drug therapy; Z79.01 Long term (current) use of anticoagulants; Z79.84 Long term (current) use of oral hypoglycemic drugs; Z85.46 Personal history of malignant neoplasm of prostate; Z98.890 Other specified postprocedural states; Z95.1 Presence of aortocoronary bypass graft
CPT/HCPCS: 36415; 51702; 74178; 80053; 81001; 82607; 82728; 82746; 83540; 83550; 85025; 85610; 87086; 87088 ×2; 87186 ×2; 96374; 99284 ×2; J0696; Q9967; 51700; 83036; 83735; 94010; 97161-GP; 99222; 99232; 99238; A4320; A9270-GY; J3475

== ENCOUNTER 2025-03-10 23:56 | Emergency (ER) | payer MEDICARE, OTHER ==
[2025-03-11 00:33] VITALS: BP 147/85; PULSE 78
== END 2025-03-11 01:02 | disposition home or self-care (01) ==
LOC: DL.ED 23:56
DX: I48.20 Chronic atrial fibrillation, unspecified (principal); R31.0 Gross hematuria; I25.10 Atherosclerotic heart disease of native coronary artery without angina pectoris; E78.00 Pure hypercholesterolemia, unspecified; I10 Essential (primary) hypertension; E11.9 Type 2 diabetes mellitus without complications; Z95.1 Presence of aortocoronary bypass graft; Z95.5 Presence of coronary angioplasty implant and graft; Z88.8 Allergy status to other drugs, medicaments and biological substances; Z79.899 Other long term (current) drug therapy; Z79.82 Long term (current) use of aspirin; Z71.1 Person with feared health complaint in whom no diagnosis is made; Z79.02 Long term (current) use of antithrombotics/antiplatelets
CPT/HCPCS: 93005; 99284